=== PATIENT | male | born 1950 | race Caucasian/White ===

== ENCOUNTER → 2016-03-02 | Outpatient (CLI) | payer OTHER ==
[~2016-03-02] MED LIST: DOXA-10 PO
[2016-03-02 17:08] LABS: % FREE PSA 8.9 %; FREE PSA 1.81 ng/ml; PROSTATE SPECIFIC ANTIGEN 20.4 ng/ml (0.000-4.000)
== END | disposition home or self-care (01) ==
LOC: C.LAB 15:11
PROVIDERS: ATTEND Urology
DX: N40.1 Benign prostatic hyperplasia with lower urinary tract symptoms (principal); R97.20 Elevated prostate specific antigen [PSA]; N52.9 Male erectile dysfunction, unspecified; N41.9 Inflammatory disease of prostate, unspecified; N50.819 Testicular pain, unspecified

== ENCOUNTER → 2016-05-12 | Outpatient (CLI) | payer OTHER | END | disposition home or self-care (01) | LOC: C.PATHSPEC 17:41 | PROVIDERS: ATTEND Urology | DX: R97.20 Elevated prostate specific antigen [PSA] (principal); N41.0 Acute prostatitis; N41.1 Chronic prostatitis ==

== ENCOUNTER 2016-08-17 10:48 | Emergency (ER) | payer OTHER ==
[~2016-08-17] VITALS: Ht 175.3 cm; Wt 81.9 kg
[2016-08-17 10:52] VITALS: TEMP 36.6; Ht 175.3 cm; Wt 81.9 kg
[2016-08-17] MEDS ORDERED: ONDANSETRON 8 MG/54 ML D5W IV STA (11:40)
[2016-08-17 12:04] LABS: HEMATOCRIT 47.9 % (42-52); MEAN CELL VOLUME 90.4 fL (80-100); MEAN CORPUSCULAR HEMOGLOBIN 30.8 pg (25-34); WHITE BLOOD COUNT 5.31 K/uL (4.8-10.8)
[2016-08-17 12:13] LABS: BUN/CREATININE RATIO 17.5 (10-20); CALCIUM 9.2 mg/dl (8.5-10.1); POTASSIUM 4.1 mmol/L (3.5-5.1)
--- NOTE | 2016-08-17 12:18 | DIAGNOSTIC IMAGING REPORT ---
ABDOMEN 2VIEW W/PA CHEST RTN CLINICAL HISTORY: ABDOMINAL PAIN/GI pain COMPARISON STUDY: 09/20/2014 FINDINGS: Negative chest. The lungs are clear. Mild nonobstructive ileus. No evidence for an obstructing pattern. Unchanging calcification lower pole left kidney. Prior cholecystectomy. IMPRESSION: 1. Negative chest. 2. Mild nonobstructive ileus. 3. Unchanged calcification lower pole left kidney. Electronically signed by: Anthony Byrd M.D. 08/17/2016 12:17 PM Dictated Date/Time: 08/17/2016 12:16 PM
[2016-08-17 12:30] LABS: MEAN PLATELET VOLUME 10.2 fL (7.4-10.4)
[2016-08-17 12:42] LABS: PLATELET COUNT 167 K/uL (130-400)
[2016-08-17 12:52] LABS: BASO % 0.4 %; BASO ABS # 0.02 K/uL (0-0.2); COMPLETE YES; EOS % 1.5 %; IG% 0.2 %; LYMPH ABS # 1.38 K/uL (1.2-3.4); MONO % 9.2 %; NEUT % 62.7 %
[2016-08-17 12:55] LABS: URINE APPEARANCE CLEAR (CLEAR); URINE BILIRUBIN NEG (NEG); URINE COLOR YELLOW; URINE NITRITE NEG (NEG); URINE PH 5.5 (4.5-7.5); URINE SPECIFIC GRAVITY 1.023 (1.000-1.030); UROBILINOGEN NEG (NEG)
[2016-08-17 13:03] LABS: MANUAL MICROSCOPIC REQUIRED? NO; REVIEW REQ? NO
--- NOTE | 2016-08-17 13:34 | DIAGNOSTIC IMAGING REPORT ---
CT SCAN OF THE ABDOMEN AND PELVIS WITHOUT IV CONTRAST CLINICAL HISTORY: Suprapubic pain. COMPARISON STUDY: Abdominal CT dated 07/26/2015. Abdominal radiographs dated 08/17/2016. TECHNIQUE: CT scan of the abdomen and pelvis is performed from the lung bases to the proximal femora. Images are reviewed in the axial, sagittal, and coronal planes. IV contrast was not administered for this examination as per the referring clinician. Note that the examination was performed in suboptimal fashion without oral and IV contrast. Automated dose control exposure was utilized. CT DOSE: 444.56 mGy.cm FINDINGS: Lung bases: The heart is normal in size and without pericardial effusion. There is no airspace consolidation or pleural effusion. Dependent atelectasis is present the lung bases. Scattered calcified granulomas are noted. There is a tiny hiatal hernia. Small calcified nodes are seen at the gastroesophageal junction. Calcified subcarinal node is partially imaged. Liver: The unenhanced liver is normal in size, contour, and attenuation. There is no intrahepatic biliary ductal dilatation. There is minimal pneumobilia, likely related to previous sphincterotomy. Gas is also seen in the common bile duct. Gallbladder: Surgically absent noting clips in the gallbladder fossa. Spleen: Normal in size and attenuation. Pancreas: The unenhanced pancreas is grossly unremarkable. Adrenal glands: Unremarkable. Kidneys: The unenhanced kidneys demonstrate cortical atrophy and are without hydronephrosis. There is a 6 mm nonobstructing calculus in the lower pole of left kidney. Additional punctate nonobstructing calculi are seen in both kidneys. There is no evidence of contour deforming renal mass lesion. Abdominal vasculature: The abdominal aorta is normal in course and caliber noting mild atherosclerotic calcification. Bowel: The small bowel and colon are normal in course and caliber. There is moderate to advanced colonic diverticulosis without CT evidence of acute diverticulitis. Mild wall thickening of the sigmoid is unchanged and likely related to chronic diverticular disease. The appendix is well-visualized and normal. Peritoneum: There is no intraperitoneal free air or abdominal ascites. There is a small fat-containing umbilical hernia. Lymphadenopathy: None. Pelvic viscera: The prostate gland is enlarged and there is median lobe hypertrophy. The bladder wall appears mildly thickened and trabeculated suggesting chronic outlet obstruction. Surgical clips are seen along the spermatic cord bilaterally. Skeletal structures: There is mild to moderate lumbosacral spondylosis. No lytic or blastic lesions are seen. IMPRESSION: 1. There are no acute infectious or inflammatory findings in the abdomen or pelvis. 2. Bilateral nonobstructing renal calculi. 3. Moderate to advanced colonic diverticulosis without CT evidence of acute diverticulitis. 4. Pneumobilia is likely related to previous sphincterotomy. Clinical correlation will be required. 5. Prostatomegaly with evidence of chronic bladder outlet obstruction. 6. Additional findings as above. Electronically signed by: Harvey Wooten M.D. 08/17/2016 1:33 PM Dictated Date/Time: 08/17/2016 1:25 PM
[2016-08-17 14:39] VITALS: BP 122/78; PULSE 74; O2SAT 98
--- NOTE | 2016-08-17 21:09 | EMERGENCY ROOM VISIT NOTE ---
ED Visit Note First contact with patient: 11:26 Chief Complaint: Abdominal pain. History of Present Illness: Mr. Church is a 66 year-old white male who ambulates into the ED accompanied by his complaining suprapubic abdominal pain. Historically patient reports gallbladder disease and status post cholecystectomy , urinary retention and kidney stones. Patient reports a acute onset of suprapubic abdominal pain that started approximately 4 days ago. This was associated with nausea and 4 episodes of diarrhea. When he woke up on Tuesday he reports his symptoms had resolved without use of any medications but noted that he was only passing a small amount of stool. On Tuesday he had return of discomfort and since that time his pain has been constant but has waxed and waned in intensity. Patient reports he is having a cramping like sensation in the suprapubic area. At rest he rates his discomfort 4/10. When he is ambulating and standing up his pain become severe and he rates this severe discomfort as a 9/10. His pain is nonradiating. He does report when his pain become severe he has the sensation like "someone is pulling on my rectum." He has not identified any other aggravating or alleviating factors related to the pain. He has not taken any medications for pain prior to arrival at the hospital. He reports all day Tuesday and today he has not moved his bowels. Patient denies fevers, chills, sweats, skin eruptions, skin color changes, upper respiratory tract symptoms, shortness of breath, chest pain, nausea, vomiting, rectal bleeding, black/tarry stools, urinary symptoms, hematuria, back /flank pain. Review of Systems: As noted above in history of present illness. All body systems were reviewed and found to be negative as noted above. Past Medical History: As noted above and hypertension, unspecified skin disorder , pneumonia, status post cholecystectomy, unspecified rotator cuff surgery, unspecified hernia surgery and unspecified knee surgery. Current Medications: Doxazosin. Allergies to Medications: Augmentin, IV contrast dye, metoclopramide. Social History: Patient is currently employed; he lives with his and feels safe in his home environment; he denies tobacco use and admits to alcohol use. Physical Examination: Vital Signs: Date Time Temp Pulse Resp B/P (MAP) Pulse Ox O2 Delivery O2 Flow Rate FiO2 08/17/16 14:39 74 18 122/78 98 7/11/17 12:51 69 20 119/74 98 Room Air 08/17/16 10:52 36.6 87 20 127/86 99 Room Air GENERAL: 66-year-old male in mild distress due to pain, nontoxic-appearing, afebrile and hemodynamically stable. NEUROLOGICAL: Awake, alert and oriented to person, place and time. Answering questions appropriately and following commands. Normal gait. Good hand eye coordination. SKIN: Warm, dry and pink. No soft tissue eruptions or trauma noted. HEENT: Atraumatic and normocephalic. PERRLA. Sclera white and conjunctiva pink. Oral cavity moist and pink. Pharynx is nonerythematous or edematous. Speech normal. No lymphadenopathy. Trachea midline. No jugular venous distention. BACK: No tenderness over the bony spine. No CVA tenderness. THORAX: Lungs sounds are clear to auscultation and equal bilaterally with symmetrical chest wall. No wheezing, rales or rhonchi. No crepitus, tenderness , subcutaneous air or deformities noted. HEART: Regular rate and rhythm. No gallops, rubs or murmurs are appreciated. ABDOMEN: Flat and soft with mild tenderness in the suprapubic area. I was not able to palpate the bladder or appreciate any distention. Decreased bowel sounds in all quadrants. No guarding, rigidity or organomegaly. EXTREMITIES: Moves all extremities well on command and with purpose. All distal neurovascular statuses are intact and equal bilaterally. ED Course: Patient is assessed as noted above. Patient's medication list was reviewed. Laboratory Testing: Test 08/17/16 11:00 08/17/16 11:05 Range/Units Urine Color YELLOW Urine Appearance CLEAR CLEAR Urine pH 5.5 4.5-7.5 Urine Specific [place] 1.023 1.000-1.030 Urine Protein NEG NEG Urine Glucose (UA) NEG NEG Urine Ketones NEG NEG Urine Occult Blood NEG NEG Urine Nitrite NEG NEG Urine Bilirubin NEG NEG Urine Urobilinogen NEG NEG Urine Leukocyte Esterase NEG NEG White Blood Count 5.31 4.8-10.8 K/uL Red Blood Count 5.30 4.7-6.1 M/uL Hemoglobin 16.3 14.0-18.0 g/dL Hematocrit 47.9 42-52 % Mean Corpuscular Volume 90.4 80-100 fL Mean Corpuscular Hemoglobin 30.8 25-34 pg Mean Corpuscular Hemoglobin Concent 34.0 32-36 g/dl Platelet Count 167 130-400 K/uL Mean Platelet Volume 10.2 7.4-10.4 fL Neutrophils (%) (Auto) 62.7 % Lymphocytes (%) (Auto) 26.0 % Monocytes (%) (Auto) 9.2 % Eosinophils (%) (Auto) 1.5 % Basophils (%) (Auto) 0.4 % Neutrophils # (Auto) 3.33 1.4-6.5 K/uL Lymphocytes # (Auto) 1.38 1.2-3.4 K/uL Monocytes # (Auto) 0.49 0.11-0.59 K/uL Eosinophils # (Auto) 0.08 0-0.5 K/uL Basophils # (Auto) 0.02 0-0.2 K/uL RDW Standard Deviation 42.6 36.4-46.3 fL RDW Coefficient of Variation 12.9 11.5-14.5 % Immature Granulocyte % (Auto) 0.2 % Immature Granulocyte # (Auto) 0.01 0.00-0.02 K/uL Sodium Level 138 136-145 mmol/L Potassium Level 4.1 3.5-5.1 mmol/L Chloride Level 104 98-107 mmol/L Carbon Dioxide Level 27 21-32 mmol/L Anion Gap 7.0 3-11 mmol/L Blood Urea Nitrogen 18 7-18 mg/dl Creatinine 1.00 0.60-1.40 mg/dl Est Creatinine Clear Calc Drug Dose 72.7 ml/min Estimated GFR () 90.5 Estimated GFR (Non- 78.1 BUN/Creatinine Ratio 17.5 10-20 Random Glucose 102 70-99 mg/dl Calcium Level 9.2 8.5-10.1 mg/dl Total Bilirubin 0.9 0.2-1 mg/dl Direct Bilirubin 0.2 0-0.2 mg/dl Aspartate Amino Transf (AST/SGOT) 22 15-37 U/L Alanine Aminotransferase (ALT/SGPT) 27 12-78 U/L Alkaline Phosphatase 72 45-117 U/L Total Protein 7.3 6.4-8.2 gm/dl Albumin 3.9 3.4-5.0 gm/dl Lipase 145 73-393 U/L Acute Abdominal Series: Was read by myself and the radiologist showing a normal- appearing chest with/infiltrates, effusions or pneumothorax. Normal heart silhouette and a normal-appearing bony structures. Abdominal component shows a mild nonobstructive ileus without evidence of obstructive pattern. No free air. Radiologist also made a left kidney calcification unchanged from previous. Noncontrast Abdominal/Pelvic CT: Was reviewed by myself and read by the radiologist showing no acute infectious or inflammatory findings within the abdomen, bilateral nonobstructive renal calculi, moderate to advanced colonic diverticulosis without evidence of diverticulitis, pneumobilia likely related to previous sphincterotomy, prostatomegaly with evidence of chronic bladder outlet obstruction. Bladder Scan: 160 mL. An IV lock was initiated and patient was offered pain and antinausea medications multiple time and refused. Patient was reassessed multiple times during his stay in the emergency department. Patient's case was reviewed with Dr. Sandoval; we agreed on diagnostic approach, treatment, disposition and plan. Patient was educated about today's findings and instructed on his treatment plan ; he verbalizes understanding and agreement with this plan. Clinical Impression: Mild nonobstructive ileus. Decision-Making: Initially my differential diagnosis I considered bowel obstruction, cystitis, urinary retention, appendicitis, kidney stone and other causes. Disposition: Patient discharged home in stable condition accompanied by his ; prior to departure he was reassessed and subjectively reported that he was pain and symptom-free. Plan: Comfort measures were discussed with the patient including a sliding pain medication scale of ibuprofen, acetaminophen and Malone; he was given appropriate narcotic precautions and his name was checked on the state database and no red flags were noted. Patient was encouraged use a liquid Bligh for the next 48 hours. [facility] and 36-48 hours for recheck; he was encouraged return to the ED if he could not [facility] Patient was encouraged to return to the ED sooner for worsening/uncontrolled pain, worsening decreasing bowel movements, bloody stools, vomiting, fevers or any new/concerning symptoms.
== END 2016-08-17 14:40 | disposition home or self-care (01) ==
LOC: C.EDB 10:49 → C.EDC 14:40
DX: K56.7 Ileus, unspecified (principal); I10 Essential (primary) hypertension; Z87.01 Personal history of pneumonia (recurrent); Z79.899 Other long term (current) drug therapy

== ENCOUNTER → 2016-09-09 | Outpatient (CLI) | payer OTHER ==
[2016-09-09 10:12] LABS: HEMATOCRIT 48.3 % (42-52); MEAN CELL VOLUME 91.3 fL (80-100); MEAN CORPUSCULAR HEMOGLOBIN 30.8 pg (25-34); MEAN CORPUSCULAR HGB CONC 33.7 g/dl (32-36); RED BLOOD COUNT 5.29 M/uL (4.7-6.1); WHITE BLOOD COUNT 4.82 K/uL (4.8-10.8)
== END | disposition home or self-care (01) ==
LOC: C.LAB 07:20
PROVIDERS: ATTEND Nurse Practitioner Family
DX: R53.83 Other fatigue (principal)

== ENCOUNTER → 2016-12-01 | Outpatient (CLI) | payer OTHER ==
[2016-12-01 10:00] LABS: BLOOD UREA NITROGEN 13 mg/dl (7-18); BUN/CREATININE RATIO 14.7 (10-20); CREATININE 0.89 mg/dl (0.60-1.40)
== END | disposition home or self-care (01) ==
LOC: C.LAB 07:40
PROVIDERS: ATTEND Urology
DX: N41.9 Inflammatory disease of prostate, unspecified (principal)

== ENCOUNTER 2017-02-16 08:38 | Emergency (ER) | payer OTHER ==
[~2017-02-16] VITALS: Ht 175.3 cm; Wt 82.0 kg
[2017-02-16 08:40] VITALS: TEMP 36.6; Ht 175.3 cm; Wt 82.0 kg
[2017-02-16] MEDS ORDERED: SODIUM CHLORIDE 0.9% 1000ML 1,000 ML IV STA (09:28)
[2017-02-16] MEDS ORDERED: MoRPHine SULFATE 4 MG/ML 1 ML CARP\\VIAL IV STA ×3 (09:28→12:11)
[2017-02-16] MEDS ORDERED: ONDANSETRON INJ 2 MG/ML 2 ML VIAL IV STA (09:28)
--- NOTE | 2017-02-16 09:29 | EMERGENCY ROOM VISIT NOTE ---
ED Visit Note First contact with patient: 08:45 I have seen and examined this patient with Ismael Pagan and generally agree with the treatment plan as discussed.
[2017-02-16 10:03] LABS: ALBUMIN 3.7 gm/dl (3.4-5.0); CALCIUM 9.1 mg/dl (8.5-10.1); CREATININE 0.86 mg/dl (0.60-1.40); POTASSIUM 4.4 mmol/L (3.5-5.1)
[2017-02-16 10:11] LABS: MEAN CORPUSCULAR HGB CONC 34.3 g/dl (32-36)
[2017-02-16] MEDS ORDERED: MELA3TAB12 PO (10:11)
[2017-02-16] MEDS ORDERED: DOCU100C31 PO (10:11)
[2017-02-16 10:33] LABS: HEMATOCRIT 47.5 % (42-52); HEMOGLOBIN 16.3 g/dL (14.0-18.0); MEAN CORPUSCULAR HEMOGLOBIN 31.2 pg (25-34); WHITE BLOOD COUNT 5.62 K/uL (4.8-10.8)
[2017-02-16 10:34] LABS: BASO % 0.2 %; BASO ABS # 0.01 K/uL (0-0.2); EOS % 1.2 %; EOS ABS # 0.07 K/uL (0-0.5); IG# 0.01 K/uL (0.00-0.02); LYMPH % 12.6 %; LYMPH ABS # 0.71 K/uL (1.2-3.4); MONO % 9.1 %; MONO ABS # 0.51 K/uL (0.11-0.59); NEUT % 76.7 %; NEUT ABS # 4.31 K/uL (1.4-6.5)
--- NOTE | 2017-02-16 10:52 | DIAGNOSTIC IMAGING REPORT ---
PA CHEST WITH ABDOMINAL SERIES CLINICAL HISTORY: Lower abdominal pain. Constipation. FINDINGS: A PA chest radiograph is compared to study dated 08/17/2016. The cardiomediastinal silhouette is unremarkable. There are low lung volumes and bibasilar atelectasis. The lungs and pleural spaces are otherwise clear. No pneumothorax is seen. The bony thorax is grossly intact. Supine and erect abdominal radiographs are compared to radiographs and CT dated 08/17/2016. Cholecystectomy clips are identified in the right upper quadrant. There is mild gaseous distention of the small bowel. Air-fluid levels are noted in the small bowel and colon. There is no clear radiographic evidence of bowel obstruction. No intraperitoneal free air is seen. There is a nonobstructing left renal calculus. The lumbosacral spine and bony pelvis appear intact. IMPRESSION: 1. No active disease in the chest. 2. There is mild gaseous distention of the small bowel. Air-fluid levels are noted in the small bowel and colon. The appearance suggests a nonspecific enterocolitis. Bowel obstruction is considered less likely. Clinical correlation will be required. 3. No intraperitoneal free air is seen. 4. Nonobstructing left renal calculus. Electronically signed by: Harvey Wooten M.D. 02/16/2017 10:50 AM Dictated Date/Time: 02/16/2017 10:48 AM
[2017-02-16] MEDS ORDERED: DICY10CA55 PO (12:13)
--- NOTE | 2017-02-16 12:13 | EMERGENCY ROOM VISIT NOTE ---
History First contact with patient: 08:45 Chief Complaint: ABDOMINAL PAIN Stated Complaint: LOWER ABDOMINAL PAIN Nursing Triage Summary: c/o lower abd pain since yesterday with diarrhea on tuesday and cold like sx History of Present Illness Patient is a 66-year-old white male who presents the emergency department for evaluation of lower abdominal pain that started yesterday afternoon. Patient reports that he has a history of stomach problems, he has had ileus in the past and has been admitted for bowel obstructions. He is status post cholecystectomy. He notes that about 3-4 days ago, he had an episode of increased diarrhea, which was followed by constipation 2 days. His lower abdominal discomfort started last evening. He states that this is similar to his prior presentations. He also does note that he developed some minor upper respiratory symptoms with the onset of the diarrhea including nasal congestion and a cough. He reports low midline abdominal discomfort. He describes it as a burning sensation and states that it comes in waves. It it is a 56/10 presently, but shoots up to a 10/10. He does feel nauseous with the pain. His last bowel movement was last evening. He is on stool softeners chronically, and does take magnesium citrate to help facilitate bowel movements. He does admit to dysuria, but has a history of BPH. He denies any fever or chills. He has not vomited. He states that this pain is similar to his prior episodes of abdominal pain. His last bowel movement was last night, and was hard and dark. Review of Systems Review of systems as per HPI. All other systems reviewed were negative. 10 systems reviewed. Past Medical/Surgical History Medical Problems: (1) Abdominal pain (2) Benign Prostatic Hyperplasia With Lower Urinary Tract Symp (3) Chest pain (4) Diverticulitis (5) Elevated liver enzymes (6) Febrile illness (7) Hyperbilirubinemia (8) Hypertension (9) Ileus (10) Kidney disease (11) Kidney stones (12) Lower abdominal pain (13) Night sweats (14) Night sweats (15) Pneumonia (16) skin problems (17) Small bowel obstruction (18) Small bowel obstruction (19) Urinary retention Surgical Problems: (1) S/P cholecystectomy Electronic medical records are reviewed and summarized as above/below. See Problem List. Family History Cancer Hypertension Kidney disease Kidney stones Lung disease Social History Smoking Status: Former Smoker Alcohol Use: occasionally Marital Status: Housing Status: lives with significant other Occupation Status: employed Current/Historical Medications Scheduled Docusate Sodium (Docusate Sodium), 100 MG PO BID Doxazosin Mesylate (Doxazosin Mesylate), 8 MG PO HS Scheduled PRN Dicyclomine Hcl (Bentyl), 10 MG PO TID PRN for Pain Melatonin-Pyridoxine (Melatonin), 1 TAB PO HS PRN for Sleep Physical Exam Vital Signs Date Time Temp Pulse Resp B/P (MAP) Pulse Ox O2 Delivery O2 Flow Rate FiO2 02/16/17 12:30 70 18 132/77 96 Room Air 02/16/17 11:01 67 16 135/78 94 02/16/17 08:40 36.6 83 16 142/92 95 Physical Exam CONSTITUTIONAL: Patient is a well-appearing 66-year-old white male who is awake and alert and mildly uncomfortable, laying on the gurney with his female friend at the bedside. EYES: Pupils equal, round, reactive to light and accommodation. EOMs intact without nystagmus. Sclera are anicteric. ENT: Tympanic membranes intact, with normal landmarks. External canals are clear. Oral and nasopharynx are clear. Mucous membranes are moist, no lesions , tongue and gums appear normal. NECK: No bruits auscultated. Supple without lymphadenopathy. No thyromegaly. No meningeal signs. Full active range of motion without discomfort. CARDIOVASCULAR: Regular rate and rhythm, with normal S1 and S2, no murmur or gallop or rub is heard. No carotid bruits auscultated. No JVD. Peripheral pulses easily palpable. RESPIRATORY: Breath sounds equal and clear to auscultation without wheezes, rales, or rhonchi heard. Full and equal chest expansion without accessory muscle use or retractions. ABDOMEN: Bowel sounds are present. Well-healed surgical scars are noted. Abdomen is soft, slightly distended, tender to palpation in the lower abdomen in the midline. There is no guarding, rebound or rigidity. INTEGUMENTARY: No lesions or rash, normal skin turgor. LYMPH: No lymphadenopathy. Medical Decision & Procedures ER Provider Diagnostic Interpretation: PA CHEST WITH ABDOMINAL SERIES CLINICAL HISTORY: Lower abdominal pain. Constipation. FINDINGS: A PA chest radiograph is compared to study dated 08/17/2016. The cardiomediastinal silhouette is unremarkable. There are low lung volumes and bibasilar atelectasis. The lungs and pleural spaces are otherwise clear. No pneumothorax is seen. The bony thorax is grossly intact. Supine and erect abdominal radiographs are compared to radiographs and CT dated 08/17/2016. Cholecystectomy clips are identified in the right upper quadrant. There is mild gaseous distention of the small bowel. Air-fluid levels are noted in the small bowel and colon. There is no clear radiographic evidence of bowel obstruction. No intraperitoneal free air is seen. There is a nonobstructing left renal calculus. The lumbosacral spine and bony pelvis appear intact. IMPRESSION: 1. No active disease in the chest. 2. There is mild gaseous distention of the small bowel. Air-fluid levels are noted in the small bowel and colon. The appearance suggests a nonspecific enterocolitis. Bowel obstruction is considered less likely. Clinical correlation will be required. 3. No intraperitoneal free air is seen. 4. Nonobstructing left renal calculus. Laboratory Results 02/16/17 09:30 Red Blood Count 5.22, Mean Corpuscular Volume 91.0, Mean Corpuscular Hemoglobin 31.2, Mean Corpuscular Hemoglobin Concent 34.3, Mean Platelet Volume , Neutrophils (%) (Auto) 76.7, Lymphocytes (%) (Auto) 12.6, Monocytes (%) (Auto) 9.1, Eosinophils (%) (Auto) 1.2, Basophils (%) (Auto) 0.2, Neutrophils # (Auto) 4.31, Lymphocytes # (Auto) 0.71, Monocytes # (Auto) 0.51, Eosinophils # (Auto) 0.07, Basophils # (Auto) 0.01 02/16/17 09:30 Test 02/16/17 09:30 02/16/17 09:50 White Blood Count 5.62 K/uL (4.8-10.8) Red Blood Count 5.22 M/uL (4.7-6.1) Hemoglobin 16.3 g/dL (14.0-18.0) Hematocrit 47.5 % (42-52) Mean Corpuscular Volume 91.0 fL (80-100) Mean Corpuscular Hemoglobin 31.2 pg (25-34) Mean Corpuscular Hemoglobin Concent 34.3 g/dl (32-36) Platelet Count K/uL (130-400) Mean Platelet Volume fL (7.4-10.4) Neutrophils (%) (Auto) 76.7 % Lymphocytes (%) (Auto) 12.6 % Monocytes (%) (Auto) 9.1 % Eosinophils (%) (Auto) 1.2 % Basophils (%) (Auto) 0.2 % Neutrophils # (Auto) 4.31 K/uL (1.4-6.5) Lymphocytes # (Auto) 0.71 K/uL (1.2-3.4) Monocytes # (Auto) 0.51 K/uL (0.11-0.59) Eosinophils # (Auto) 0.07 K/uL (0-0.5) Basophils # (Auto) 0.01 K/uL (0-0.2) RDW Standard Deviation 43.0 fL (36.4-46.3) RDW Coefficient of Variation 13.0 % (11.5-14.5) Immature Granulocyte % (Auto) 0.2 % Immature Granulocyte # (Auto) 0.01 K/uL (0.00-0.02) Anion Gap 4.0 mmol/L (3-11) Est Creatinine Clear Calc Drug Dose 84.5 ml/min Estimated GFR () 104.7 Estimated GFR (Non- 90.4 BUN/Creatinine Ratio 15.9 (10-20) Calcium Level 9.1 mg/dl (8.5-10.1) Total Bilirubin 0.7 mg/dl (0.2-1) Aspartate Amino Transf (AST/SGOT) 19 U/L (15-37) Alanine Aminotransferase (ALT/SGPT) 30 U/L (12-78) Alkaline Phosphatase 74 U/L (45-117) Total Protein 7.0 gm/dl (6.4-8.2) Albumin 3.7 gm/dl (3.4-5.0) Globulin 3.3 gm/dl (2.5-4.0) Albumin/Globulin Ratio 1.1 (0.9-2) Lipase 119 U/L (73-393) Urine Color YELLOW Urine Appearance CLEAR (CLEAR) Urine pH 8.0 (4.5-7.5) Urine Specific [place] 1.018 (1.000-1.030) Urine Protein NEG (NEG) Urine Glucose (UA) NEG (NEG) Urine Ketones NEG (NEG) Urine Occult Blood NEG (NEG) Urine Nitrite NEG (NEG) Urine Bilirubin NEG (NEG) Urine Urobilinogen NEG (NEG) Urine Leukocyte Esterase NEG (NEG) Medications Administered Medications (Trade) Dose Ordered Sig/Luis Alberto Route Start Time Stop Time Status Last Admin Dose Admin Sodium Chloride 1,000 ml @ 999 mls/hr Q1H1M STAT IV 02/16/17 09:28 02/16/17 10:28 DC 02/16/17 10:00 999 MLS/HR Ondansetron HCl (Zofran Inj) 4 mg NOW STAT IV 02/16/17 09:28 02/16/17 09:30 DC 02/16/17 09:43 4 MG Morphine Sulfate (MoRPHine SULFATE INJ) 4 mg NOW STAT IV 02/16/17 09:28 02/16/17 09:30 DC 02/16/17 09:43 4 MG Morphine Sulfate (MoRPHine SULFATE INJ) 4 mg NOW STAT IV 02/16/17 11:03 02/16/17 11:04 DC 02/16/17 11:10 4 MG Morphine Sulfate (MoRPHine SULFATE INJ) 4 mg NOW STAT IV 02/16/17 12:11 02/16/17 12:12 DC 02/16/17 12:27 4 MG ED Course The patient was seen and assessed as above. His old records were reviewed. IV lock was initiated and he was hydrated with normal saline solution. Laboratory studies were collected, CBC with differential, CMP, lipase and urinalysis were performed. He was given Zofran 4 mg IV for nausea and was given 4 mg IV 3 for his lower abdominal discomfort. Given his history and symptoms, acute abdominal series was obtained. Patient's laboratory studies noted a normal white count, no left shift or bandemia. H&H is normal. Electrolytes are within normal limits. Renal functions are not elevated. LFTs are unremarkable and lipase is normal. Urinalysis is completely clear. Acute abdominal series notes mild gaseous distention of the small bowel. Air-fluid levels are noted in the small bowel and colon, appearance is suggestive of a nonspecific enterocolitis. Bowel obstruction was considered less likely. There is no free air. Nonobstructing nephrolithiasis was noted. The patient was reassessed frequently. As noted above, he did require several doses of morphine for pain. The patient's old records are reviewed, and he has multiple visits with hospitalizations similar to this in the past. He does have a history of diverticulosis, and diverticulitis was considered. Given his benign abdominal exam however, and findings consistent with enterocolitis on x- ray, after reviewing with the patient and his and with attending physician , it was felt that CT scan was not indicated at this time. Certainly if his symptoms persist CT would be considered. Patient reports an underlying history of constipation alternating with diarrhea. He does have some intermittent bloating and abdominal discomfort, and I question whether he may have some underlying element of irritable bowel syndrome. He has not seen GI since his gallbladder issues many years ago, and I discussed with him that he may benefit from GI evaluation. At this point, it was recommended that the patient put himself in a soft/clear diet and remain hydrated. Narcotics were avoided due to their constipating side effects, but he was given a prescription for Bentyl to use as needed for cramping. He is advised to follow-up with his primary care provider for recheck, but welcomed to return to the emergency department for persistent or worsening symptoms. He was discharged home with a family member driving. He rated his pain a 6/10 at discharge. Differential diagnoses entertained included UTI, pyelonephritis, urinary retention, cystitis, diverticulitis, bowel obstruction, mass or malignancy, among others. Medical Decision See ED Course. Medication Reconcilliation Current Medication List: was personally reviewed by me Blood Pressure Screening Blood pressure disposition: Elevated BP felt to be situational Impression Primary Impression: Lower abdominal pain Additional Impression: Enterocolitis Departure Information Prescriptions Dicyclomine Hcl (BENTYL) 10 Mg Cap 10 MG PO TID Y for Pain, #30 CAP Prov: Summer Pagan PA 02/16/17 Referrals No Doctor, Assigned (PCP) Patient Instructions [facility] Additional Instructions Bentyl 10 mg : Take 1 tablet 3 times daily as needed for abdominal pain/ cramping. Acetaminophen(Tylenol) may be used for fever or pain. Use 1000mg every eight hours as needed. Avoid using more than 3000mg in a 24 hour period. This is available over the counter. Rest and drink plenty of fluids as tolerated. Slow sips of water or sports drinks are recommended instead of large amounts all at once. Continue current medications. Once your stomach is settled start with a clear liquid diet (jello, soup broth, etc.) and then advance as tolerated. You should avoid full, heavy meals for about 24 hrs from the time your symptoms resolved. Return to the ER immediately for worsening or persistent abdominal pain, vomiting, fevers, chest pains, difficulty breathing, black or bloody stools, worsening of your condition, or as needed. Follow up with your primary physician in 1-2 days for a recheck of your current condition. Problem Qualifiers
[2017-02-16 12:30] VITALS: BP 132/77; PULSE 70; O2SAT 96
[2017-02-17] MEDS ORDERED: DICY10CA55 PO (18:30)
[2017-02-17] MEDS ORDERED: TAMS0.4C38 PO (20:17)
[2017-02-17] MEDS ORDERED: ONDA4TAB10 SL (20:17)
== END 2017-02-16 12:36 | disposition home or self-care (01) ==
LOC: C.EDB 08:41
DX: K52.9 Noninfective gastroenteritis and colitis, unspecified (principal); K59.00 Constipation, unspecified; K56.699 Other intestinal obstruction unspecified as to partial versus complete obstruction; K57.92 Diverticulitis of intestine, part unspecified, without perforation or abscess without bleeding; K63.89 Other specified diseases of intestine; Z90.49 Acquired absence of other specified parts of digestive tract; I10 Essential (primary) hypertension; Z87.891 Personal history of nicotine dependence; Z82.49 Family history of ischemic heart disease and other diseases of the circulatory system; Z84.1 Family history of disorders of kidney and ureter; Z83.6 Family history of other diseases of the respiratory system

== ENCOUNTER 2017-02-17 17:36 | Emergency (ER) | payer OTHER ==
[~2017-02-17] VITALS: Ht 175.3 cm; Wt 84.1 kg
[~2017-02-17 17:36] MED LIST changes: +DICY10CA55 PO; +DOCU100C31 PO; +MELA3TAB12 PO
[2017-02-17 17:53] VITALS: TEMP 36.8; Ht 175.3 cm; Wt 84.1 kg
[2017-02-17] MEDS ORDERED: KETOROLAC TROMETHAMINE 30 MG/ML VIAL IV STA (18:24)
[2017-02-17] MEDS ORDERED: SODIUM CHLORIDE 0.9% 1000ML 1,000 ML IV STA (18:24)
[2017-02-17] MEDS ORDERED: ONDANSETRON INJ 2 MG/ML 2 ML VIAL IV STA (18:24)
[2017-02-17] MEDS ORDERED: DICY10CA55 PO (18:30)
[2017-02-17 18:53] LABS: ALBUMIN 3.6 gm/dl (3.4-5.0); CALCIUM 8.6 mg/dl (8.5-10.1); CREATININE 1.46 mg/dl (0.60-1.40); POTASSIUM 4.3 mmol/L (3.5-5.1)
[2017-02-17 18:57] LABS: TOTAL PROTEIN 6.9 gm/dl (6.4-8.2)
--- NOTE | 2017-02-17 18:59 | EMERGENCY ROOM VISIT NOTE ---
History Report prepared by Mignon: Jericho Cisse Under the Supervision of: Dr. Ashok Burnett M.D. First contact with patient: 18:12 Chief Complaint: GI ASSESSMENT Stated Complaint: PAIN IN LEFT SIDE, BURNING/BLOATING STOMACH Nursing Triage Summary: Patient was seen in the ER yesterday, pain worse in left flank and also c/o bloating and nausea History of Present Illness The patient is a 66 year old male who presents to the Emergency Room with complaints of intermittent back pain for 15 hours [employer]. He woke up in the middle of the night with severe left back pain. He notes a cold, nausea, bloating, and upper abdominal pain. He notes left abdominal pain with a burning sensation. He notes the pain worsens with walking. He currently rates his pain 7/10 in severity. He states this is the same pain he had with kidney stones in the past. He notes that he ate breakfast with no issues. He notes that he took Tylenol for the back pain. He was recently seen in the ED yesterday for low abdominal symptoms. He notes the pain from his ED visit has resolved itself. He was diagnosed with viral enteritis. He notes that he has had several CT scans in the past for abdominal issues. He was given anti-spasmodic medication, which he notes provided relief. He denies any diarrhea. Source of History: patient Onset: 15 hours AD O[employer]ATIONS [employer] Position: back Symptom Intensity: 7/10 Timing: intermittent Modifying Factors (Worsening): other (walking) Associated Symptoms: + nausea, + abdominal pain (upper ), No diarrhea Note: She notes back pain, bloating, and a cold. Review of Systems See HPI for pertinent positives and negatives. A total of ten systems were reviewed and were otherwise negative. Past Medical & Surgical Medical Problems: (1) Abdominal pain (2) Benign Prostatic Hyperplasia With Lower Urinary Tract Symp (3) Chest pain (4) Diverticulitis (5) Elevated liver enzymes (6) Febrile illness (7) Hyperbilirubinemia (8) Hypertension (9) Ileus (10) Kidney disease (11) Kidney stones (12) Lower abdominal pain (13) Night sweats (14) Night sweats (15) Pneumonia (16) skin problems (17) Small bowel obstruction (18) Small bowel obstruction (19) Urinary retention Surgical Problems: (1) S/P cholecystectomy Family History Cancer Hypertension Kidney disease Kidney stones Lung disease Social History Smoking Status: Never Smoker Smokeless Tobacco Use: No Alcohol Use: occasionally Marital Status: Housing Status: lives with significant other Occupation Status: employed Current/Historical Medications Scheduled Docusate Sodium (Docusate Sodium), 100 MG PO BID Doxazosin Mesylate (Doxazosin Mesylate), 8 MG PO HS Ondasetron Odt (Zofran Odt), 4 MG SL Q6H Tamsulosin Hcl (Flomax), 0.4 MG PO DAILY Scheduled PRN Dicyclomine Hcl (Bentyl), 10 MG PO TID PRN for ABD PAIN Melatonin-Pyridoxine (Melatonin), 1 TAB PO HS PRN for Sleep Allergies Coded Allergies: Metoclopramide (Verified Allergy, Severe, GI SYMPTOMS, HALLUCINATIONS, 12/25) DEVEELOPED HALLUCIANTIONS Iodine (Verified Allergy, Unknown, UNKNOWN, 02/17/17) Amoxicillin (Verified Adverse Reaction, Intermediate, GI SYMPTOMS,PROB CHOLESTASIS, 02/17/17) probable cholestasis Clavulanic Acid (Verified Adverse Reaction, Intermediate, GI SYMPTOMS, PROB CHOLESTASIS, 02/17/17) probable cholestasis Physical Exam Vital Signs Date Time Temp Pulse Resp B/P (MAP) Pulse Ox O2 Delivery O2 Flow Rate FiO2 02/17/17 20:20 68 18 128/82 96 Room Air 02/17/17 19:09 63 18 116/71 96 Room Air 02/17/17 17:53 36.8 75 16 126/81 93 Room Air Physical Exam GENERAL: Awake, alert, uncomfortable-appearing, in no distress HENT: Normocephalic, atraumatic. Oropharynx dry mucus membranes. EYES: Normal conjunctiva. Sclera non-icteric. NECK: Supple. No nuchal rigidity. FROM. No JVD. RESPIRATORY: Clear to auscultation. CARDIAC: Regular rate, normal rhythm. Extremities warm and well perfused. Pulses equal. ABDOMEN: Soft, non-distended. Mild tenderness to left CVA and periumbilical region. No rebound or guarding. No masses. RECTAL: Deferred. MUSCULOSKELETAL: Chest examination reveals no tenderness. The back is symmetrical on inspection without obvious abnormality. There is no CVA tenderness to palpation. No joint edema. LOWER EXTREMITIES: Calves are equal size bilaterally and non-tender. No edema. No discoloration. NEURO: Normal sensorium. No sensory or motor deficits noted. SKIN: No rash or jaundice noted. Medical Decision & Procedures ER Provider Diagnostic Interpretation: Radiology results as stated below per my review and radiologist interpretation: ABD/PELVIS IV CONTRAST ONLY CT DOSE: 487.42 mGy.cm HISTORY: Pain left flank pain TECHNIQUE: Multiaxial CT images of the abdomen and pelvis were performed following the use of intravenous contrast. A dose lowering technique was utilized adhering to the principles of ALARA. COMPARISON STUDY: 08/17/2016 FINDINGS: Mild bibasilar atelectatic and/or infiltrative change. Prior cholecystectomy. Liver spleen and pancreas are unremarkable. Kidneys enhance uniformly. There is increased prominence of the left renal pelvis and left renal collecting system. There is a 5 mm obstructing calculus mid left ureter. There is bowel pattern overall is nonobstructive. There is increased fecal load within the sigmoid. There are components of chronic sigmoid diverticulosis. There is no evidence for acute sigmoid diverticulitis. There is trace amount of free cul-de-sac fluid. Bladder is midline. Prostate is enlarged. IMPRESSION: 1. Obstructing calculus mid left ureter measuring 5 mm.. 2. Mild left hydroureteronephrosis. 3. Increased fecal load within the sigmoid colon consistent with fecal stasis. Mild chronic colonic diverticulosis. 4. Bibasilar atelectatic and/or infiltrative changes considered minimal. The above report was generated using voice recognition software. It may contain grammatical, syntax or spelling errors. Electronically signed by: Anthony Byrd M.D. 02/17/2017 7:52 PM Dictated Date/Time: 02/17/2017 7:48 PM Laboratory Results 02/17/17 18:20 Red Blood Count 5.04, Mean Corpuscular Volume 91.3, Mean Corpuscular Hemoglobin 31.0, Mean Corpuscular Hemoglobin Concent 33.9, Mean Platelet Volume 10.3, Neutrophils (%) (Auto) 65.0, Lymphocytes (%) (Auto) 19.7, Monocytes (%) (Auto) 11.0, Eosinophils (%) (Auto) 3.7, Basophils (%) (Auto) 0.4, Neutrophils # (Auto ) 3.38, Lymphocytes # (Auto) 1.02, Monocytes # (Auto) 0.57, Eosinophils # (Auto ) 0.19, Basophils # (Auto) 0.02 02/17/17 18:20 Test 02/17/17 18:20 02/17/17 18:40 02/17/17 18:43 White Blood Count 5.19 K/uL (4.8-10.8) Red Blood Count 5.04 M/uL (4.7-6.1) Hemoglobin 15.6 g/dL (14.0-18.0) Hematocrit 46.0 % (42-52) Mean Corpuscular Volume 91.3 fL (80-100) Mean Corpuscular Hemoglobin 31.0 pg (25-34) Mean Corpuscular Hemoglobin Concent 33.9 g/dl (32-36) Platelet Count 128 K/uL (130-400) Mean Platelet Volume 10.3 fL (7.4-10.4) Neutrophils (%) (Auto) 65.0 % Lymphocytes (%) (Auto) 19.7 % Monocytes (%) (Auto) 11.0 % Eosinophils (%) (Auto) 3.7 % Basophils (%) (Auto) 0.4 % Neutrophils # (Auto) 3.38 K/uL (1.4-6.5) Lymphocytes # (Auto) 1.02 K/uL (1.2-3.4) Monocytes # (Auto) 0.57 K/uL (0.11-0.59) Eosinophils # (Auto) 0.19 K/uL (0-0.5) Basophils # (Auto) 0.02 K/uL (0-0.2) RDW Standard Deviation 43.3 fL (36.4-46.3) RDW Coefficient of Variation 13.1 % (11.5-14.5) Immature Granulocyte % (Auto) 0.2 % Immature Granulocyte # (Auto) 0.01 K/uL (0.00-0.02) Red Blood Cell Morphology Unremarkable Anion Gap 7.0 mmol/L (3-11) Est Creatinine Clear Calc Drug Dose 49.8 ml/min Estimated GFR () 57.3 Estimated GFR (Non- 49.4 BUN/Creatinine Ratio 9.4 (10-20) Calcium Level 8.6 mg/dl (8.5-10.1) Total Bilirubin 0.6 mg/dl (0.2-1) Direct Bilirubin 0.1 mg/dl (0-0.2) Aspartate Amino Transf (AST/SGOT) 21 U/L (15-37) Alanine Aminotransferase (ALT/SGPT) 25 U/L (12-78) Alkaline Phosphatase 77 U/L (45-117) Total Protein 6.9 gm/dl (6.4-8.2) Albumin 3.6 gm/dl (3.4-5.0) Lipase 165 U/L (73-393) Urine Color YELLOW Urine Appearance CLEAR (CLEAR) Urine pH 5.5 (4.5-7.5) Urine Specific [place] 1.010 (1.000-1.030) Urine Protein NEG (NEG) Urine Glucose (UA) NEG (NEG) Urine Ketones NEG (NEG) Urine Occult Blood TRACE (NEG) Urine Nitrite NEG (NEG) Urine Bilirubin NEG (NEG) Urine Urobilinogen NEG (NEG) Urine Leukocyte Esterase NEG (NEG) Urine WBC (Auto) 0 /hpf (0-5) Urine RBC (Auto) 0-4 /hpf (0-4) Urine Hyaline Casts (Auto) 0 /lpf (0-5) Urine Epithelial Cells (Auto) 0-5 /lpf (0-5) Urine Bacteria (Auto) NEG (NEG) Lactic Acid Level 1.1 mmol/L (0.4-2.0) Laboratory results reviewed by me Medications Administered Medications (Trade) Dose Ordered Sig/Luis Alberto Route Start Time Stop Time Status Last Admin Dose Admin Sodium Chloride 1,000 ml @ 999 mls/hr Q1H1M STAT IV 02/17/17 18:24 02/17/17 19:24 DC 02/17/17 18:42 999 MLS/HR Ondansetron HCl (Zofran Inj) 4 mg NOW STAT IV 02/17/17 18:24 02/17/17 18:29 DC 02/17/17 18:41 4 MG Ketorolac Tromethamine (Toradol Inj) 15 mg NOW STAT IV 02/17/17 18:24 02/17/17 18:29 DC 02/17/17 18:44 15 MG Sodium Chloride ([place] Nasal [place]) 2 sprays NOW ONCE NA 02/17/17 19:15 02/17/17 19:16 DC 02/17/17 19:30 2 SPRAYS Methylprednisolone Sodium Succinate (Solu-Medrol IV) 125 mg NOW STAT IV 02/17/17 19:22 1/11/18 19:23 DC 02/17/17 19:29 125 MG Diphenhydramine HCl (Benadryl Inj) 25 mg NOW STAT IV 02/17/17 19:22 02/17/17 19:23 DC 02/17/17 19:29 25 MG Tamsulosin HCl (Flomax Cap) 0.4 mg NOW ONCE PO 02/17/17 20:15 02/17/17 20:16 DC 02/17/17 20:18 0.4 MG Oxycodone HCl (Roxicodone Immediate Rel 5MG Home Pack) 1 homepack UD ONCE PO 02/17/17 20:30 02/17/17 20:31 DC 02/17/17 20:35 1 HOMEPACK ED Course 1817: The patient was evaluated in room C9. A complete history and physical exam was performed. 2019: I reassessed the patient at this time. He is feeling better and resting comfortably. I discussed the results and treatment plan with the patient. I answered all pertaining questions that he had. He expressed understanding and verbalized agreement. The patient will be discharged home. Medical Decision I reviewed the patient's past medical history, medications, and the nursing notes as described above. The patient's history was concerning for abdominal pain. Differential diagnosis: Etiologies such as appendicitis, diverticulitis, PUD, biliary pathology, UTI, pancreatitis, obstruction, mesenteric ischemia, aortic pathology, infections, inflammatory bowel disease, renal colic, as well as others were entertained. The patient is a 66-year-old gentleman with a past medical history of renal stones presents emergency Department with left flank pain in the setting of being seen yesterday in ED for more lower abdominal pain per history of present illness. On arrival the patient is uncomfortable but in no acute distress, afebrile stable vital signs. Labs with WBC and lactate within normal limits. Cr 1.6 up from wnl yesterday. Likely 2/2 mild dehydration given patient's clinically dry status. UA negative for infection. CT demonstrates a 5 mm left ureteral stone associated hydronephrosis. Patient reassessed and symptoms improved after IV fluids and toradol. Plan for Flomax, analgesia and urology follow-up. Patint has followed with Dr. Salvador in the past. Findings and plan for follow-up reviewed with patient. Patient agreeable and d/c'd per discharge instructions. Medication Reconcilliation Current Medication List: was personally reviewed by me Blood Pressure Screening Patient's blood pressure: Normal blood pressure Impression Primary Impression: Ureteral stone Additional Impression: Hydronephrosis due to obstruction of ureter Scribe Attestation The scribe's documentation has been prepared under my direction and personally reviewed by me in its entirety. I confirm that the note above accurately reflects all work, treatment, procedures, and medical decision making performed by me. Departure Information Dispostion Home / Self-Care Prescriptions Tamsulosin Hcl (FLOMAX) 0.4 Mg Cap 0.4 MG PO DAILY, #10 CAP Prov: Ashok Burnett M.D. 02/17/17 Ondasetron Odt (ZOFRAN ODT) 4 Mg Tab 4 MG SL Q6H for Nausea, #6 TAB Prov: Ashok Burnett M.D. 02/17/17 Referrals No Doctor, Assigned (PCP) Momo Salvador MD, Urology Forms HOME CARE DOCUMENTATION FORM, IMPORTANT VISIT INFORMATION Patient Instructions Kidney Stones, My [facility] Additional Instructions Please follow up with your urologist, Dr. Salvador, in the next 1-3 days for re- evaluation and repeat kidney tests. You were found to have a 5mm obstructing kidney stone. Otherwise, your exam, lab results, and CT scan did not show signs of an emergent condition at this time. Flomax as directed. Acetaminophen for pain as needed. Oxycodone for breakthrough pain as needed. Zofran as needed for nausea. Ensure hydration. Return to the emergency department for worsening symptoms as described in the accompanying instructions. Problem Qualifiers
[2017-02-17] MEDS ORDERED: SODIUM CHLORIDE 0.65% NA SOLN 45 ML (OCEAN) ONE (19:15)
[2017-02-17] MEDS ORDERED: METHYLPREDNISOLONE 125 MG VIAL IV STA (19:22)
[2017-02-17] MEDS ORDERED: DiphenhydrAMINE HCL 50 MG/ML VIAL IV STA (19:22)
[2017-02-17 19:32] LABS: HEMOGLOBIN 15.6 g/dL (14.0-18.0); MEAN CELL VOLUME 91.3 fL (80-100); MEAN CORPUSCULAR HGB CONC 33.9 g/dl (32-36); MEAN PLATELET VOLUME 10.3 fL (7.4-10.4); RED CELL DISTRIBUTION WIDTH CV 13.1 % (11.5-14.5); RED CELL DISTRIBUTION WIDTH SD 43.3 fL (36.4-46.3); WHITE BLOOD COUNT 5.19 K/uL (4.8-10.8)
[2017-02-17 19:33] LABS: BASO % 0.4 %; BASO ABS # 0.02 K/uL (0-0.2); EOS % 3.7 %; EOS ABS # 0.19 K/uL (0-0.5); IG# 0.01 K/uL (0.00-0.02); LYMPH % 19.7 %; LYMPH ABS # 1.02 K/uL (1.2-3.4); MONO ABS # 0.57 K/uL (0.11-0.59); NEUT ABS # 3.38 K/uL (1.4-6.5)
[2017-02-17 19:41] LABS: PLATELET COUNT 128 K/uL (130-400)
[2017-02-17] MEDS ORDERED: OPTIRAY 320 IV PRN (19:45)
--- NOTE | 2017-02-17 19:54 | DIAGNOSTIC IMAGING REPORT ---
ABD/PELVIS IV CONTRAST ONLY CT DOSE: 487.42 mGy.cm HISTORY: Pain left flank pain TECHNIQUE: Multiaxial CT images of the abdomen and pelvis were performed following the use of intravenous contrast. A dose lowering technique was utilized adhering to the principles of ALARA. COMPARISON STUDY: 08/17/2016 FINDINGS: Mild bibasilar atelectatic and/or infiltrative change. Prior cholecystectomy. Liver spleen and pancreas are unremarkable. Kidneys enhance uniformly. There is increased prominence of the left renal pelvis and left renal collecting system. There is a 5 mm obstructing calculus mid left ureter. There is bowel pattern overall is nonobstructive. There is increased fecal load within the sigmoid. There are components of chronic sigmoid diverticulosis. There is no evidence for acute sigmoid diverticulitis. There is trace amount of free cul-de-sac fluid. Bladder is midline. Prostate is enlarged. IMPRESSION: 1. Obstructing calculus mid left ureter measuring 5 mm.. 2. Mild left hydroureteronephrosis. 3. Increased fecal load within the sigmoid colon consistent with fecal stasis. Mild chronic colonic diverticulosis. 4. Bibasilar atelectatic and/or infiltrative changes considered minimal. The above report was generated using voice recognition software. It may contain grammatical, syntax or spelling errors. Electronically signed by: Anthony Byrd M.D. 02/17/2017 7:52 PM Dictated Date/Time: 02/17/2017 7:48 PM
[2017-02-17] MEDS ORDERED: TAMSULOSIN HCL 0.4 MG CAP PO ONE (20:15)
[2017-02-17] MEDS ORDERED: TAMS0.4C38 PO (20:17)
[2017-02-17] MEDS ORDERED: ONDA4TAB10 SL (20:17)
[2017-02-17 20:20] VITALS: BP 128/82; PULSE 68; O2SAT 96
[2017-02-17] MEDS ORDERED: OXYCODONE IR HOME PACK PO ONE (20:30)
== END 2017-02-17 20:36 | disposition home or self-care (01) ==
LOC: C.EDB 17:37 → C.EDC 20:36
DX: N13.2 Hydronephrosis with renal and ureteral calculous obstruction (principal); N40.1 Benign prostatic hyperplasia with lower urinary tract symptoms; I10 Essential (primary) hypertension; Z87.442 Personal history of urinary calculi; N28.9 Disorder of kidney and ureter, unspecified; Z87.01 Personal history of pneumonia (recurrent); Z90.49 Acquired absence of other specified parts of digestive tract; Z80.9 Family history of malignant neoplasm, unspecified; Z82.49 Family history of ischemic heart disease and other diseases of the circulatory system; Z84.1 Family history of disorders of kidney and ureter

== ENCOUNTER → 2017-03-03 | Outpatient (CLI) | payer OTHER ==
[~2017-03-03] MED LIST changes: +ONDA4TAB10 SL
--- NOTE | 2017-03-03 15:51 | DIAGNOSTIC IMAGING REPORT ---
KUB CLINICAL HISTORY: Nephrolithiasis. FINDINGS: 2 AP supine abdominal radiographs are correlated with abdominal CT dated 02/17/2017. There is a nonobstructed abdominal bowel gas pattern. Moderate colonic fecal retention is observed. Cholecystectomy clips are seen in the right upper quadrant. There is a 5 mm calculus identified in the left hemipelvis. This is consistent with a distal left ureteral stone. No additional calculi are clearly seen in either kidney. The bony structures appear intact. IMPRESSION: A 5 mm obstructing calculus is seen in the distal left ureter. Electronically signed by: Harvey Wooten M.D. 03/03/2017 3:50 PM Dictated Date/Time: 03/03/2017 3:38 PM
== END | disposition home or self-care (01) ==
LOC: C.RAD 15:18
PROVIDERS: ATTEND Urology
DX: N20.1 Calculus of ureter (principal); N41.9 Inflammatory disease of prostate, unspecified

== ENCOUNTER → 2017-03-17 | Outpatient (CLI) | payer OTHER ==
--- NOTE | 2017-03-17 15:44 | DIAGNOSTIC IMAGING REPORT ---
ULTRASOUND KIDNEYS AND BLADDER CLINICAL HISTORY: Erectile dysfunction. COMPARISON STUDY: Abdominal CT dated 02/17/2017. TECHNIQUE: Real-time, grayscale, and color flow sonography of the kidneys and bladder is performed. Images are reviewed in the transverse and longitudinal planes. FINDINGS: Kidneys: The kidneys are normal in size and echotexture. The right kidney measures 10.3 x 5.1 x 4.6 cm and the left kidney measures 10.8 x 5.6 x 4.8 cm. There is no hydronephrosis. No shadowing renal calculi are identified. There is no sonographic evidence of contour deforming renal mass lesion. No perinephric fluid is identified. Bladder: The wall is thickened and trabeculated. The prostate gland is enlarged and there is median lobe hypertrophy. A left ureteral jet was seen. IMPRESSION: 1. The kidneys are normal in size and without hydronephrosis. 2. Prostatomegaly with evidence of chronic bladder outlet obstruction. Electronically signed by: Harvey Wooten M.D. 03/17/2017 3:43 PM Dictated Date/Time: 03/17/2017 3:42 PM
== END | disposition home or self-care (01) ==
LOC: C.ULTR 14:31
PROVIDERS: ATTEND Urology
DX: N52.9 Male erectile dysfunction, unspecified (principal); N40.0 Benign prostatic hyperplasia without lower urinary tract symptoms; N32.0 Bladder-neck obstruction

== ENCOUNTER → 2017-04-04 | Outpatient (CLI) | payer OTHER ==
[~2017-04-04] MED LIST changes: +FLM4 PO
--- NOTE | 2017-04-04 14:04 | DIAGNOSTIC IMAGING REPORT ---
KUB CLINICAL HISTORY: 66 years-old Male presenting with N52.9 Erectile [id number]. TECHNIQUE: Single supine view of the abdomen was obtained. COMPARISON: 03/03/[address] from 02/17/2017. FINDINGS: Cholecystectomy clips noted. Nonobstructive bowel gas pattern. No gross pneumoperitoneum. Moderate stool burden in the right colon. Persistent calcification over the distal left ureter. This is not changed in position since the most recent radiograph from 03/03/2017 but has progressed since prior CT from 02/17/2017. Transitional lumbosacral anatomy of L5. IMPRESSION: 1. Unchanged position of the distal left ureteral calculus. Electronically signed by: Richar Nina M.D. 04/04/2017 2:03 PM Dictated Date/Time: 04/04/2017 2:00 PM
[2017-04-04 15:06] LABS: BLOOD UREA NITROGEN 16 mg/dl (7-18)
== END | disposition home or self-care (01) ==
LOC: C.RAD 12:36
PROVIDERS: ATTEND Urology
DX: N52.9 Male erectile dysfunction, unspecified (principal); N20.1 Calculus of ureter

== ENCOUNTER → 2017-04-14 | Outpatient (CLI) | payer OTHER ==
[~2017-04-14] MED LIST changes: -DICY10CA55 PO; -DOCU100C31 PO; +HYDR-5688 PO; -MELA3TAB12 PO; -ONDA4TAB10 SL
--- NOTE | 2017-04-14 15:52 | DIAGNOSTIC IMAGING REPORT ---
KUB HISTORY: Follow-up study in a patient with left-sided ureteral calculus and lithotripsy N20.1 Left ureteral stone COMPARISON: KUB 04/04/2017 and 03/03/2017, CT 02/17/2017 FINDINGS: The bowel gas pattern is non-obstructive. There is no organomegaly. 5 mm calcification of the left hemipelvis correlates with previously identified distal left ureteral calculus, unchanged in positioning. No additional ureteral or renal calculi are identified. Cholecystectomy clips are present. Degenerative changes are noted within the lower lumbar spine. No pneumoperitoneum or pneumatosis. No fracture. Surgical clips project over the right scrotal region. IMPRESSION: Unchanged positioning of distal left ureteral calculus. Electronically signed by: Harsh Borja M.D. 04/14/2017 3:50 PM Dictated Date/Time: 04/14/2017 3:47 PM
== END | disposition home or self-care (01) ==
LOC: C.RAD 14:51
PROVIDERS: ATTEND Urology
DX: N20.1 Calculus of ureter (principal)

== ENCOUNTER → 2017-04-15 | Day surgery (SDC) | payer OTHER ==
[2017-04-05 15:30] VITALS: Ht 175.3 cm; Wt 84.1 kg
--- NOTE | 2017-04-07 10:38 | DIAGNOSTIC IMAGING REPORT ---
CHEST 2 VIEWS ROUTINE CLINICAL HISTORY: Left ureteral stone. COMPARISON STUDY: Chest radiograph February 16, 2017. FINDINGS: Lung lungs are at the lower limits of normal. There is no evidence for pulmonary edema. There is no consolidation to suggest pneumonia. Mild bilateral lower lung increased markings suggest atelectasis. Cardiac size is normal. Mediastinal contours are normal. There is no pneumothorax or pleural effusion. There are cholecystectomy clips. IMPRESSION: No acute cardiopulmonary findings. Electronically signed by: Mark Martin M.D. 04/07/2017 10:36 AM Dictated Date/Time: 04/07/2017 10:35 AM
[2017-04-07 12:30] LABS: CREATININE 1.03 mg/dl (0.60-1.40)
[2017-04-07 12:46] LABS: HEMATOCRIT 46.3 % (42-52); MEAN CELL VOLUME 89.6 fL (80-100); MEAN CORPUSCULAR HEMOGLOBIN 30.9 pg (25-34); MEAN CORPUSCULAR HGB CONC 34.6 g/dl (32-36); RED CELL DISTRIBUTION WIDTH CV 12.9 % (11.5-14.5); RED CELL DISTRIBUTION WIDTH SD 42.7 fL (36.4-46.3); WHITE BLOOD COUNT 6.12 K/uL (4.8-10.8)
[2017-04-07 12:58] LABS: BASO % 0.3 %; BASO ABS # 0.02 K/uL (0-0.2); EOS % 2.3 %; EOS ABS # 0.14 K/uL (0-0.5); IG# 0.02 K/uL (0.00-0.02); LYMPH % 19.9 %; LYMPH ABS # 1.22 K/uL (1.2-3.4); MEAN PLATELET VOLUME 9.7 fL (7.4-10.4); MONO % 8.2 %; NEUT ABS # 4.22 K/uL (1.4-6.5); PLATELET COUNT 185 K/uL (130-400)
[~2017-04-15] VITALS: Ht 175.3 cm; Wt 84.1 kg
[~2017-04-15] MED LIST changes: +ACETAMINOPHEN 325 MG TAB PO PRN; +ATROPINE SULFATE 0.1 MG/ML 5ML SYR IV PRN; +CIPROFLOXACIN 400MG / D5W IV SCH; +EpHEDrine SULFATE INJ 50 MG/ML AMP IV PRN; +FENTANYL CITRATE INJ 50 MCG/1 ML 2 ML VIAL IV PRN; +FENTANYL CITRATE INJ 50 MCG/1 ML 2 ML VIAL ONE; +LACTATED RINGER'S 1000ML 1,000 ML IV SCH; +LIDOCAINE HCL 2% 2 ML VIAL (20MG/ML) ONE; +MIDAZOLAM HCL 1 MG/ML 2ML VIAL ONE; +ONDANSETRON INJ 2 MG/ML 2 ML VIAL IV PRN; +ONDANSETRON INJ 2 MG/ML 2 ML VIAL ONE; +OXYCODONE/ACETAMINOPHEN 5-325 TAB PO PRN; +PROPOFOL IV EMULSION 10 MG/ML 20 ML VIAL IV ONE; +SODIUM CHLORIDE 0.9% 1000ML 1,000 ML IV SCH
--- NOTE | 2017-04-15 10:20 | History & Physical Bridge Note ---
H&P Re-Evaluation Bridge Note: I have examined the patient, reviewed the History & Physical and in the interval since the performance of the History & Physical I have noted the following changes of clinical significance: No changes noted
--- NOTE | 2017-04-15 10:48 | Discharge Instructions-SurgCtr ---
Discharge Instructions Date of Service Apr 15, 2017. Visit Reason for Visit: Stones Discharge Discharge Diagnosis / Problem: stones Discharge Goals Goal(s): Decrease discomfort, Improve function, Increase independence, Improve disease control Medications Stopped Medications Name(s): Advil, prn-last dose over 1 week ago Activity Recommendations Activity Limitations: resume your previous activity Lifting Limitations: none Exercise/Sports Limitations: none May Resume Sexual Activity: when tolerated Shower/Bathe: no limitations Driving or Machine Use: resume 1 day after discharge Anesthesia . Post Anesthesia Instructions: If you have had General Anesthesia or IV Sedation: * Do not drive today. * Resume driving when surgeon permits. * Do not make important decisions or sign legal documents today. * Call surgeon for: 1. Temperature elevations greater than 101 degrees F. 2. Uncontrollable pain. 3. Excessive bleeding. 4. Persistent nausea and vomiting. 5. Medication intolerance (nausea, vomiting or rash). * For nausea and vomiting use only clear liquids such as: tea, soda, bouillon until nausea subsides, then gradually increase diet as tolerated. * If you have any concerns or questions, call your surgeon's office. If physician is unavailable and it is an emergency, call 911 or go to the nearest emergency room. . Instructions / Follow-Up Instructions / Follow-Up Please keep your previously scheduled follow up appointment Diet Recommendations Home Diet: no limitations, resume previous diet Pending Studies Studies pending at discharge: no Medical Emergencies . Who to Call and When: Medical Emergencies: If at any time you feel your situation is an emergency, please call 911 immediately. . Non-Emergent Contact Non-Emergency issues call your: Urologist Call Non-Emergent contact if: you have a fever, temperature is above 101.5, your pain is not controlled, your pain is worsening . . "Provider Documentation" section prepared by Ramin Man. .
--- NOTE | 2017-04-15 10:50 | [facility] Operative Report ---
Operative Report Operative Date Apr 15, 2017. Pre-Operative Diagnosis left ureteral calc Post-Operative Diagnosis left ureteral calc Procedure(s) Performed L ESWL Surgeon Dania Wisdom Estimated Blood Loss 0cc Drains None Anesthesia Type General Complication(s) none Disposition yes Recovery Room / PACU Indications L ureteral stone Description of Procedure The patient was identified in the preoperative holding area, appropriate informed consent was reviewed and completed and the patient was transported to the operating suite. Upon arrival appropriate preoperative antibiotics were administered and general anesthesia induced. The patient was placed in supine position and the stone was localized under fluoroscopy. A total of 3000 shocks were delivered to the stone. There appeared to be good fragmentation of the stone. Details of this procedure can be found on the [facility] information sheet. At the conclusion of the case the patient was extubated and taken to the PACU in stable condition. There were no complications. I attest to the content of the Intraoperative Record and any orders documented therein. Any exceptions are noted below.
[2017-04-15 12:09] VITALS: TEMP 36.8
--- NOTE | 2017-04-15 12:27 | Anesthesia Progress Nt - [facility] ---
Anesthesia Post Op Note Date & Time Apr 15, 2017 at 12:27 Vital Signs Pain Intensity: 0 Vital Signs Past 12 Hours Date Time Temp Pulse Resp B/P (MAP) Pulse Ox O2 Delivery O2 Flow Rate FiO2 04/15/17 12:09 36.8 64 16 110/72 (85) 96 Room Air 04/15/17 12:01 36.8 66 16 107/73 98 Room Air 04/15/17 11:56 66 15 94 04/15/17 11:56 66 15 04/15/17 11:55 105/76 04/15/17 11:51 66 10 04/15/17 11:51 65 10 96 04/15/17 11:50 106/69 04/15/17 11:46 66 14 04/15/17 11:46 65 14 98 04/15/17 11:45 105/71 04/15/17 11:41 65 12 97 04/15/17 11:41 64 12 04/15/17 11:40 103/70 04/15/17 11:36 63 13 04/15/17 11:36 63 13 98 04/15/17 11:35 102/68 04/15/17 11:31 64 13 97 04/15/17 11:31 64 13 04/15/17 11:30 106/70 04/15/17 11:28 63 12 04/15/17 11:28 63 12 98 04/15/17 11:27 102/70 04/15/17 11:23 62 12 04/15/17 11:23 62 12 96 04/15/17 11:20 107/76 04/15/17 11:18 66 04/15/17 11:18 36.4 65 16 111/76 97 Mask 7 04/15/17 11:18 66 111/76 95 04/15/17 07:56 36.6 92 16 127/76 (93) 95 Room Air Notes Mental Status: alert / awake / arousable, participated in evaluation Pt Amnestic to Procedure: Yes Nausea / Vomiting: adequately controlled Pain: adequately controlled Airway Patency, RR, SpO2: stable & adequate BP & HR: stable & adequate Hydration State: stable & adequate Anesthetic Complications: no major complications apparent
[2017-04-15 12:36] VITALS: BP 114/72; PULSE 66; O2SAT 98
== END | disposition home or self-care (01) ==
LOC: X.SURG 07:49
PROVIDERS: ATTEND Urology
DX: N20.1 Calculus of ureter (principal); N20.0 Calculus of kidney; N40.1 Benign prostatic hyperplasia with lower urinary tract symptoms; N52.9 Male erectile dysfunction, unspecified; N41.9 Inflammatory disease of prostate, unspecified; I10 Essential (primary) hypertension; Z82.49 Family history of ischemic heart disease and other diseases of the circulatory system; Z79.899 Other long term (current) drug therapy; Z87.891 Personal history of nicotine dependence

== ENCOUNTER → 2017-04-26 | Outpatient (CLI) | payer OTHER ==
[~2017-04-26] MED LIST changes: -ACETAMINOPHEN 325 MG TAB PO PRN; -ATROPINE SULFATE 0.1 MG/ML 5ML SYR IV PRN; -CIPROFLOXACIN 400MG / D5W IV SCH; -EpHEDrine SULFATE INJ 50 MG/ML AMP IV PRN; -FENTANYL CITRATE INJ 50 MCG/1 ML 2 ML VIAL IV PRN; -FENTANYL CITRATE INJ 50 MCG/1 ML 2 ML VIAL ONE; -LACTATED RINGER'S 1000ML 1,000 ML IV SCH; -LIDOCAINE HCL 2% 2 ML VIAL (20MG/ML) ONE; -MIDAZOLAM HCL 1 MG/ML 2ML VIAL ONE; -ONDANSETRON INJ 2 MG/ML 2 ML VIAL IV PRN; -ONDANSETRON INJ 2 MG/ML 2 ML VIAL ONE; -OXYCODONE/ACETAMINOPHEN 5-325 TAB PO PRN; -PROPOFOL IV EMULSION 10 MG/ML 20 ML VIAL IV ONE; -SODIUM CHLORIDE 0.9% 1000ML 1,000 ML IV SCH
--- NOTE | 2017-04-26 13:49 | DIAGNOSTIC IMAGING REPORT ---
KUB CLINICAL HISTORY: N20.1 Left ureteral stoneTO BE DONE EITHER THE NIGHT BEFORE OR COMPARISON STUDY: 04/14/2017 FINDINGS: Nonobstructive bowel pattern. Unchanged position of the distal left ureteral calculus. No additional or new calcifications. IMPRESSION: Unchanged position of the distal left ureteral calculus. The above report was generated using voice recognition software. It may contain grammatical, syntax or spelling errors. Electronically signed by: Anthony Byrd M.D. 04/26/2017 1:48 PM Dictated Date/Time: 04/26/2017 1:47 PM
== END | disposition home or self-care (01) ==
LOC: C.RAD 13:28
PROVIDERS: ATTEND Urology
DX: N20.1 Calculus of ureter (principal)

== ENCOUNTER → 2017-05-05 | Outpatient (CLI) | payer OTHER ==
[~2017-05-05] MED LIST changes: -HYDR-5688 PO; +OXYC-57 PO
--- NOTE | 2017-05-05 15:18 | DIAGNOSTIC IMAGING REPORT ---
KUB CLINICAL HISTORY: N20.1 Left ureteral stone nephrocalcinosis COMPARISON STUDY: 04/26/2017 FINDINGS: The soft tissues, psoas shadows, renal outlines and intestinal gas pattern appear normal. There is no evidence for bowel obstruction. No abnormal abdominal calcifications are seen. Within the left lateral pelvis is a 5 mm calcification of the distal left ureter. This is unchanged in position. IMPRESSION: 5 mm calcification distal left ureter unchanged from the prior study. The above report was generated using voice recognition software. It may contain grammatical, syntax or spelling errors. Electronically signed by: Anthony Byrd M.D. 05/05/2017 3:17 PM Dictated Date/Time: 05/05/2017 3:16 PM
== END | disposition home or self-care (01) ==
LOC: C.RAD 14:51
PROVIDERS: ATTEND Urology
DX: N20.1 Calculus of ureter (principal)

== ENCOUNTER → 2017-05-06 | Day surgery (SDC) | payer OTHER ==
[2017-04-29 10:49] VITALS: Ht 175.3 cm; Wt 84.1 kg
[~2017-05-06] VITALS: Ht 175.3 cm; Wt 84.1 kg
[~2017-05-06] MED LIST changes: +ATROPINE SULFATE 0.1 MG/ML 5ML SYR IV PRN; +CIPROFLOXACIN 400MG / D5W IV SCH; +DEXAMETHASONE SOD INJ 4 MG/ML VIAL IV PRN; +DEXAMETHASONE SOD INJ 4 MG/ML VIAL ONE; +EpHEDrine SULFATE INJ 50 MG/ML AMP IV PRN; +FENTANYL CITRATE INJ 50 MCG/1 ML 2 ML VIAL IV PRN; +FENTANYL CITRATE INJ 50 MCG/1 ML 2 ML VIAL ONE; +KETOROLAC TROMETHAMINE 15 MG/ML VIAL IV. PRN; +LABETALOL HCL IV 5 MG/ML 20ML IV PRN; +LACTATED RINGER'S 1000ML 1,000 ML IV SCH; +LIDOCAINE HCL 2% 2 ML VIAL (20MG/ML) ONE; +MIDAZOLAM HCL 1 MG/ML 2ML VIAL ONE; +MoRPHine SULFATE 10 MG/ML CARP/VIAL IV PRN; +ONDANSETRON INJ 2 MG/ML 2 ML VIAL IV PRN; +ONDANSETRON INJ 2 MG/ML 2 ML VIAL ONE; +OXYCODONE/ACETAMINOPHEN 5-325 TAB PO PRN; +PHENYLEPHRINE 100MCG/ML 5ML SYR IV PRN; +PROPOFOL IV EMULSION 10 MG/ML 20 ML VIAL IV ONE
--- NOTE | 2017-05-06 12:17 | [facility] Operative Report ---
Operative Report Operative Date May 06, 2017. Pre-Operative Diagnosis Left Ureteral Calculi Post-Operative Diagnosis Same Procedure(s) Performed Left Extracorporeal Shock Wave Lithotripsy, Repeat Surgeon Dr. Disha Hernandez Outbound Supervisor Surgeon(s) None Estimated Blood Loss 0 Findings distal left ureteral stone Specimens None Drains None Anesthesia Type General Complication(s) none Disposition yes Recovery Room / PACU Indications distal left ureteral stone Description of Procedure Patient was identified in the preoperative holding area, appropriate informed consent was reviewed and completed and the patient was transported to the operating suite. Upon arrival appropriate preoperative antibiotics were administered and general anesthesia induced. The patient was placed in supine position and the stone was localized under fluoroscopy. A total of [_3000__] shocks were delivered to the stone. There appeared to be good fragmentation of the stone. Details of this procedure can be found on the [facility] information sheet. At the conclusion of the case the patient was extubated and taken to the PACU in stable condition. There were no complications. I attest to the content of the Intraoperative Record and any orders documented therein. Any exceptions are noted below.
--- NOTE | 2017-05-06 12:19 | Discharge Instructions-SurgCtr ---
Discharge Instructions Date of Service May 06, 2017. Visit Reason for Visit: Stones Discharge Discharge Diagnosis / Problem: left ureteral stone Discharge Goals Goal(s): Therapeutic intervention Medications Stopped Medications Name(s): held advil for ten days Activity Recommendations Activity Limitations: per Instructions/Follow-up section Exercise/Sports Limitations: rest today May Resume Sexual Activity: when tolerated Shower/Bathe: no limitations Driving or Machine Use: resume 1 day after discharge Anesthesia . Post Anesthesia Instructions: If you have had General Anesthesia or IV Sedation: * Do not drive today. * Resume driving when surgeon permits. * Do not make important decisions or sign legal documents today. * Call surgeon for: 1. Temperature elevations greater than 101 degrees F. 2. Uncontrollable pain. 3. Excessive bleeding. 4. Persistent nausea and vomiting. 5. Medication intolerance (nausea, vomiting or rash). * For nausea and vomiting use only clear liquids such as: tea, soda, bouillon until nausea subsides, then gradually increase diet as tolerated. * If you have any concerns or questions, call your surgeon's office. If physician is unavailable and it is an emergency, call 911 or go to the nearest emergency room. . Instructions / Follow-Up Instructions / Follow-Up MEDICATIONS: Resume previous medications unless instructed otherwise by your surgeon. Resume pre-ES[facility] medication except for aspirin, coumadin or other blood thinners. __ Toradol 10 mg every 6 hours for initial pain. __ Lortab 5 mg 1-2 every 4 hours for pain. _x_ Percocet 5 mg 1-2 every 4 hours for pain. __ Macrodantin 50 mg x 3 a day. __ Flomax 1 tab daily one half (1/2) hour after supper. SPECIAL CARE INSTRUCTIONS: 1. Get KUB (x-ray) _x_ day before or day of office visit and bring x-ray to office __ get x-ray 2 days before and tell office you are getting x-rays when you call for the appointment. 2. Strain ALL urine. 3. Please call if you have a fever, chills, severe pain, or constant dribbling of urine. 4. Office phone number . FOLLOW UP VISIT: Please call the office to schedule a follow-up appointment at . Diet Recommendations Home Diet: resume previous diet Procedures Procedures Performed: Left Extracorporeal Shock Wave Lithotripsy, Repeat Pending Studies Studies pending at discharge: no Medical Emergencies . Who to Call and When: Medical Emergencies: If at any time you feel your situation is an emergency, please call 911 immediately. . Non-Emergent Contact Non-Emergency issues call your: Urologist Call Non-Emergent contact if: temperature is above 101.5, your pain is not controlled . . "Provider Documentation" section prepared by Alejandro Hernandez. . [place] Drug Monitoring Program Search Results: patient reviewed within database
[2017-05-06 13:29] VITALS: TEMP 36.4
--- NOTE | 2017-05-06 13:45 | Anesthesia Progress Nt - [facility] ---
Anesthesia Post Op Note Date & Time May 06, 2017 at 13:45 Vital Signs Pain Intensity: 0 Vital Signs Past 12 Hours Date Time Temp Pulse Resp B/P (MAP) Pulse Ox O2 Delivery O2 Flow Rate FiO2 05/06/17 13:29 36.4 79 16 114/74 (87) 95 Room Air 05/06/17 13:21 36.4 75 16 110/65 96 Room Air 05/06/17 13:16 86 15 93 05/06/17 13:16 85 15 05/06/17 13:15 103/67 05/06/17 13:11 85 18 95 05/06/17 13:11 84 18 05/06/17 13:10 115/64 05/06/17 13:06 78 14 05/06/17 13:06 78 14 100/66 96 05/06/17 13:01 77 14 99 05/06/17 13:01 77 14 05/06/17 13:00 118/70 05/06/17 12:56 77 16 100 05/06/17 12:56 77 16 05/06/17 12:55 119/72 05/06/17 12:51 70 13 100 05/06/17 12:51 70 13 05/06/17 12:50 36.6 73 16 114/67 99 Mask 05/06/17 12:50 111/66 05/06/17 12:49 74 114/67 98 05/06/17 12:49 77 05/06/17 09:55 36.5 88 16 110/73 (85) 96 Room Air Notes Mental Status: alert / awake / arousable, participated in evaluation Pt Amnestic to Procedure: Yes Nausea / Vomiting: adequately controlled Pain: adequately controlled Airway Patency, RR, SpO2: stable & adequate BP & HR: stable & adequate Hydration State: stable & adequate Anesthetic Complications: no major complications apparent
[2017-05-06 13:50] VITALS: BP 122/74; PULSE 81; O2SAT 97
== END | disposition home or self-care (01) ==
LOC: X.SURG 09:58
PROVIDERS: ATTEND Urology
DX: N20.1 Calculus of ureter (principal); I10 Essential (primary) hypertension; M19.90 Unspecified osteoarthritis, unspecified site; R97.20 Elevated prostate specific antigen [PSA]; N40.1 Benign prostatic hyperplasia with lower urinary tract symptoms; N52.9 Male erectile dysfunction, unspecified; Z87.891 Personal history of nicotine dependence; Z91.041 Radiographic dye allergy status; Z90.49 Acquired absence of other specified parts of digestive tract; Z82.49 Family history of ischemic heart disease and other diseases of the circulatory system

== ENCOUNTER → 2017-05-09 | Outpatient (CLI) | payer OTHER ==
[~2017-05-09] MED LIST changes: -ATROPINE SULFATE 0.1 MG/ML 5ML SYR IV PRN; -CIPROFLOXACIN 400MG / D5W IV SCH; -DEXAMETHASONE SOD INJ 4 MG/ML VIAL IV PRN; -DEXAMETHASONE SOD INJ 4 MG/ML VIAL ONE; -EpHEDrine SULFATE INJ 50 MG/ML AMP IV PRN; -FENTANYL CITRATE INJ 50 MCG/1 ML 2 ML VIAL IV PRN; -FENTANYL CITRATE INJ 50 MCG/1 ML 2 ML VIAL ONE; -KETOROLAC TROMETHAMINE 15 MG/ML VIAL IV. PRN; -LABETALOL HCL IV 5 MG/ML 20ML IV PRN; -LACTATED RINGER'S 1000ML 1,000 ML IV SCH; -LIDOCAINE HCL 2% 2 ML VIAL (20MG/ML) ONE; -MIDAZOLAM HCL 1 MG/ML 2ML VIAL ONE; -MoRPHine SULFATE 10 MG/ML CARP/VIAL IV PRN; -ONDANSETRON INJ 2 MG/ML 2 ML VIAL IV PRN; -ONDANSETRON INJ 2 MG/ML 2 ML VIAL ONE; -OXYCODONE/ACETAMINOPHEN 5-325 TAB PO PRN; -PHENYLEPHRINE 100MCG/ML 5ML SYR IV PRN; -PROPOFOL IV EMULSION 10 MG/ML 20 ML VIAL IV ONE
== END | disposition home or self-care (01) ==
LOC: C.LAB 12:30
PROVIDERS: ATTEND Urology
DX: N20.0 Calculus of kidney (principal)

== ENCOUNTER → 2017-05-13 | Outpatient (CLI) | payer OTHER ==
--- NOTE | 2017-05-13 14:04 | DIAGNOSTIC IMAGING REPORT ---
KUB HISTORY: Left-sided stones. Right flank pain. COMPARISON: KUB 05/05/2017. FINDINGS: The bowel gas pattern is unremarkable. There are no dilated loops of small bowel to suggest an obstruction. The kidneys are partially by overlying bowel gas. No renal calculi identified. No right ureteral calculi. Stable 5 mm calcification within the left deep pelvis. No pneumoperitoneum or pneumatosis. IMPRESSION: 1. No change in the 5 mm distal left ureteral stone. 2. No renal or right ureteral calculi identified. Electronically signed by: Dell Marshall M.D. 05/13/2017 2:03 PM Dictated Date/Time: 05/13/2017 2:01 PM
== END | disposition home or self-care (01) ==
LOC: C.RAD 13:35
PROVIDERS: ATTEND Urology
DX: N23 Unspecified renal colic (principal)

== ENCOUNTER → 2017-05-17 | Outpatient (CLI) | payer OTHER ==
--- NOTE | 2017-05-17 17:05 | DIAGNOSTIC IMAGING REPORT ---
KUB CLINICAL HISTORY: Nephrolithiasis. FINDINGS: 2 AP supine abdominal radiographs are compared to study dated 05/13/2017 and correlated with abdominal CT dated 02/17/2017. There is a nonobstructed abdominal bowel gas pattern. Moderate colonic fecal retention is observed. Cholecystectomy clips are seen in the right upper quadrant. There is unchanged position of a 5 mm calculus at the left vesicoureteral junction as compared to recent prior studies. No additional calculi are clearly seen in either kidney. The bony structures appear intact. IMPRESSION: Unchanged appearance of a 5 mm obstructing calculus at the left vesicoureteral junction as compared to 05/13/2017. Electronically signed by: Harvey Wooten M.D. 05/17/2017 5:03 PM Dictated Date/Time: 05/17/2017 5:02 PM
== END | disposition home or self-care (01) ==
LOC: C.RAD 14:43
PROVIDERS: ATTEND Urology
DX: N20.1 Calculus of ureter (principal)

== ENCOUNTER → 2017-05-30 | Outpatient (CLI) | payer OTHER ==
[~2017-05-30] MED LIST changes: +OPTIRAY 300 IV PRN
--- NOTE | 2017-05-30 14:35 | DIAGNOSTIC IMAGING REPORT ---
ABD/PELVIS WITHOUT FOR STONE CT DOSE: 418.94 mGy.cm HISTORY: Nephrocalcinosis DO SCAN PER DR CLAIRE, RADIOLOGY TOMOGRAPHY DOWN TECHNIQUE: Multiaxial CT images of the abdomen and pelvis were performed without the use of intravenous and oral contrast according to the standard department stone protocol. A dose lowering technique was utilized adhering to the principles of ALARA. COMPARISON STUDY: 02/17/2017. Abdomen dated 05/17/2017 FINDINGS: This study was performed as the intravenous unit tomographic unit as well as additional abutment was inoperable due to downtime repair. The kidneys are negative for hydronephrosis. The 5 mm calculus previously described at the level of the mid left ureter has migrated distally and is now 1.5 cm proximal to the left ureteral vesicle junction. There are no additional bladder calcifications. Chronic sigmoid diverticulosis is noted. The prostate is enlarged. IMPRESSION: 1. Limited study demonstrating distal migration of a mid left ureteral calculus on the patient's prior CT study. 2. It now is proximal to the left ureterovesical junction and is similar in location to the abdominal series dated 05/17/2017 3. The patient will not be charged for this CT examination due to machine downtime and failure The above report was generated using voice recognition software. It may contain grammatical, syntax or spelling errors. Electronically signed by: Anthony Claire M.D. 05/30/2017 2:34 PM Dictated Date/Time: 05/30/2017 2:29 PM
[2017-05-30 14:42] LABS: HEMATOCRIT 46.1 % (42-52); MEAN CELL VOLUME 89.2 fL (80-100); MEAN CORPUSCULAR HEMOGLOBIN 30.9 pg (25-34); MEAN CORPUSCULAR HGB CONC 34.7 g/dl (32-36); MEAN PLATELET VOLUME 9.8 fL (7.4-10.4); PLATELET COUNT 162 K/uL (130-400); RED CELL DISTRIBUTION WIDTH CV 12.8 % (11.5-14.5); WHITE BLOOD COUNT 6.33 K/uL (4.8-10.8)
[2017-05-30 14:58] LABS: IG# 0.02 K/uL (0.00-0.02); LYMPH % 9.8 %; LYMPH ABS # 0.62 K/uL (1.2-3.4); MONO % 1.4 %; MONO ABS # 0.09 K/uL (0.11-0.59); NEUT % 88.5 %
--- NOTE | 2017-05-30 15:05 | DIAGNOSTIC IMAGING REPORT ---
IVP W/OR W/O TOMOGRAMS CLINICAL HISTORY: N20.1 Left ureteral stone nephrocalcinosis COMPARISON STUDY: CT same date. Abdomen 05/17/2017 FINDINGS: Survey film confirms a 5 mm calcification within the distal left ureter to persist. Bowel pattern is nonobstructive although it obscures detail of the urinary tracts. Study is performed following the administration of 50 cc nonionic contrast. There is prompt opacification of both upper urinary tracts. Ureters normal in course and caliber. There is a nonobstructing 5 mm calculus distal left ureter. Bladder shows mild bladder wall trabeculation. There is mild elevation of the bladder floor secondary to prosthetic enlargement. IMPRESSION: 5 mm nonobstructing distal left ureteral calculus. No evidence for hydronephrosis. Mild bladder wall trabeculation. The above report was generated using voice recognition software. It may contain grammatical, syntax or spelling errors. Electronically signed by: Anthony Byrd M.D. 05/30/2017 3:02 PM Dictated Date/Time: 05/30/2017 3:01 PM
[2017-05-30 15:07] LABS: BLOOD UREA NITROGEN 16 mg/dl (7-18); CALCIUM 9.5 mg/dl (8.5-10.1); CARBON DIOXIDE 26 mmol/L (21-32); GLUCOSE 119 mg/dl (70-99); POTASSIUM 4.4 mmol/L (3.5-5.1); SODIUM 135 mmol/L (136-145)
== END | disposition home or self-care (01) ==
LOC: C.RAD 12:39
PROVIDERS: ATTEND Urology
DX: N20.1 Calculus of ureter (principal)

== ENCOUNTER → 2017-06-09 | Day surgery (SDC) | payer OTHER ==
[2017-05-19 13:18] VITALS: BMI 26.0
--- NOTE | 2017-05-30 13:42 | DIAGNOSTIC IMAGING REPORT ---
CHEST 2 VIEWS ROUTINE CLINICAL HISTORY: N20.1 Left ureteral stone PREOPERATIVE CHEST COMPARISON STUDY: 04/07/2017 FINDINGS: The cardiac and mediastinal contours are normal. There is no evidence of focal pulmonary consolidation. There is no evidence of failure. No pleural effusions are visualized.[ IMPRESSION: No active disease in the chest. Electronically signed by: Brice Hair M.D. 05/30/2017 1:41 PM Dictated Date/Time: 05/30/2017 1:41 PM
[~2017-06-09] VITALS: Ht 175.3 cm; Wt 81.8 kg
[~2017-06-09] MED LIST changes: +ATROPINE SULFATE 0.1 MG/ML 5ML SYR IV PRN; +CIPR-255 PO; +CIPROFLOXACIN / D5W 400 MG IV SCH; +Cysto-Conray II 17.2% 250ML BOTTLE ONE; +DEXAMETHASONE SOD INJ 4 MG/ML VIAL ONE; +EpHEDrine SULFATE INJ 50 MG/ML AMP IV PRN; +EpHEDrine SULFATE INJ 50 MG/ML AMP ONE; +FENTANYL CITRATE INJ 50 MCG/1 ML 2 ML VIAL IV PRN; +FENTANYL CITRATE INJ 50 MCG/1 ML 2 ML VIAL ONE; +FLUT0.15; +HYDROmorphone INJ 2 MG/ML SYR/VIAL IV PRN; +LABETALOL HCL IV 5 MG/ML 20ML IV PRN; +LACTATED RINGER'S 1000ML 1,000 ML IV SCH; +LIDOCAINE HCL 2% 2 ML VIAL (20MG/ML) ONE; +MIDAZOLAM HCL 1 MG/ML 2ML VIAL ONE; +ONDANSETRON INJ 2 MG/ML 2 ML VIAL IV PRN; +ONDANSETRON INJ 2 MG/ML 2 ML VIAL ONE; -OPTIRAY 300 IV PRN; +OXYCODONE/ACETAMINOPHEN 5-325 TAB PO PRN; +PHEN-775 PO; +PHENAZOPYRIDINE HCL 200 MG TAB PO PRN; +PHENYLEPHRINE 100MCG/ML 5ML SYR IV PRN; +PROMETHAZINE HCL INJ 12.5 MG in SODIUM CHLORIDE 0.9% 50ML 50 ML IV PRN; +PROPOFOL IV EMULSION 10 MG/ML 20 ML VIAL ONE; +SODIUM CHLORIDE 0.9% INJ 10 ML VIAL ONE
--- NOTE | 2017-06-09 08:20 | DIAGNOSTIC IMAGING REPORT ---
KUB HISTORY: Follow-up study in a patient with left ureteral calculus N20.1 Left ureteral [id number] COMPARISON: CT abdomen and pelvis 05/30/2017 FINDINGS: The bowel gas pattern is non-obstructive. There is no organomegaly. Renal shadows are partially obscured by bowel gas. Punctate nonobstructing calculus of the superior pole left kidney redemonstrated. Previously noted right nephrolithiasis are not clearly seen. 5 mm calcification left hemipelvis correlates with previously noted calculus of the left ureterovesicular junction appears unchanged. Cholecystectomy clips noted. No pneumoperitoneum or pneumatosis. No fracture. IMPRESSION: 1. Unchanged positioning of the 5 mm calculus of the left ureterovesicular junction. 2. Nonobstructing left-sided nephrolithiasis. 3. Prior cholecystectomy. Electronically signed by: Harsh Borja M.D. 06/09/2017 8:19 AM Dictated Date/Time: 06/09/2017 8:17 AM
[2017-06-09 11:38] VITALS: BP 126/77; PULSE 96; TEMP 36.9; O2SAT 96; Ht 175.3 cm; Wt 81.8 kg
--- NOTE | 2017-06-09 15:49 | Discharge Instructions ---
Discharge Instructions Date of Service June 09, 2017. Admission Reason for Admission: Left Ureteral Stone Discharge Discharge Diagnosis / Problem: L ureteral stone s/p uscope, laser litho, basket , stent Discharge Goals Goal(s): Improve function, Improve disease control Activity Recommendations Activity Limitations: as noted below Lifting Limitations: no more than 25 pounds, gradually increase as tolerated Exercise/Sports Limitations: rest today, gradually increase as tolerated May Resume Sexual Activity: after follow-up appointment Shower/Bathe: no limitations Driving or Machine Use: resume 1 day after discharge . Instructions / Follow-Up Instructions / Follow-Up Follow-up in office as scheduled for stent removal with KUB Xray before visit. Current Hospital Diet Patient's current hospital diet: Discharge Diet Recommended Diet: Regular Diet (good fluid intake) Procedures Procedures Performed: Cystoscopy, left retrograde pyelography, left semirigid ureteroscopy with laser lithotripsy, basket stone extraction, left ureteral stent placement Pending Studies Studies pending at discharge: yes List of pending studies: Stones for chemical analysis Medical Emergencies . Who to Call and When: Medical Emergencies: If at any time you feel your situation is an emergency, please call 911 immediately. . Non-Emergent Contact Non-Emergency issues call your: Urologist Call Non-Emergent contact if: you have a fever, temperature is above 101, your pain is not controlled, your pain is worsening, your pain is unusual for you, your pain is concerning you, you have any medication questions . . "Provider Documentation" section prepared by Momo Salvador. . [place] Drug Monitoring Program Search Results: patient reviewed within database, see additional documentation Drug Monitoring Findings: Last prescriptions in the perioperative period 1 month ago
--- NOTE | 2017-06-09 15:55 | [facility] Operative Report ---
Operative Report Operative Date June 09, 2017. Pre-Operative Diagnosis Persistent left distal ureteral stone Post-Operative Diagnosis Persistent left distal ureteral stone Procedure(s) Performed Cystoscopy, left retrograde pyelography, left semirigid ureteroscopy with laser lithotripsy, basket stone extraction, left ureteral stent placement Surgeon Dr. Margi Salvador Efficiency Miner Blasting Surgeon(s) NA Estimated Blood Loss 5cc Findings BPH, left distal ureteral stone as noted on previous imaging, good stent position after completion of case, no ureteral injury or residual stone noted. Specimens A. Left distal ureteral stone for chemical analysis Drains Left-sided 6 [place] multilength stent Anesthesia Type General Complication(s) none Disposition no Recovery Room / PACU Indications 67-year-old male with a history of stone disease in the left distal ureter which persists despite lithotripsy 2. Please see H&P for further details. He is here today for endoscopic management of his disease. Intravenous ciprofloxacin was provided for antibiotic coverage and SCDs used for DVT prophylaxis. Description of Procedure Patient was properly identified and brought into the operative suite after identification for proper consent the chart. General anesthesia with laryngeal mask was initiated and patient was prepped and draped in standard fashion for this procedure. Full timeout procedure was followed. 22 [place] rigid cystoscope was passed into the bladder under direct visualization demonstrate an enlarged prostate with a median lobe element of intravesical extension. No intercostal tumors, papillary lesions or masses were noted. Grade 2 trabeculation was present. Ureteral orifices were thankfully visualized in the normal anatomic location behind the median lobe. Left-sided ureteral orifice was addressed and retrograde pyelography was performed. Some J hooking of the ureter was present but this was able to be bypassed using an angled sensor tip wire. Filling defect in the distal ureter consistent with the patient's IVP images was appreciated. A semirigid ureteroscope was placed over a second working sensor wire and advanced into the left distal ureter without difficulties or resistance. Stone was encountered, fragmented and smaller pieces using a 200 m fiber then grasped using the 0 tip basket and removed from the patient. These were sent for chemical analysis. Ureteroscope was reintroduced into the ureter and advanced to the level of the proximal ureter without resistance or difficulties demonstrating no evidence of residual stones , lesions or obstructive elements. Complete exit ureteroscopy was performed demonstrating no ureteral tears or injuries on the way out. Cystoscope was backloaded over the safety wire and a 6 [place] multilength ureteral stent was advanced with redundant coil is present both within the renal pelvis within the bladder. Bladder was drained and cystoscope was removed. Anesthesia was reversed and patient was transferred to the recovery room in stable condition. Follow-up instructions: Patient will be provided with a short course of antibiotics, analgesics and Pyridium. Outpatient appointment for cystoscopy and stent removal with KUB previously is confirmed. Patient instructed to contact our service should he note any fevers, chills, nausea, vomiting or other difficulties in the postoperative period. I attest to the content of the Intraoperative Record and any orders documented therein. Any exceptions are noted below.
--- NOTE | 2017-06-09 16:27 | Anesthesiology Progress Note ---
Anesthesia Post Op Note Date & Time June 09, 2017 at 16:27 Vital Signs Pain Intensity: 0 Vital Signs Past 12 Hours Date Time Temp Pulse Resp B/P (MAP) Pulse Ox O2 Delivery O2 Flow Rate FiO2 06/09/17 16:20 73 16 103/63 96 Oxymask 10 06/09/17 16:10 73 16 125/76 99 Oxymask 10 06/09/17 16:01 36.3 83 16 124/77 97 Oxymask 10 06/09/17 11:38 36.9 96 16 126/77 (93) 96 Room Air Notes Mental Status: alert / awake / arousable, participated in evaluation Pt Amnestic to Procedure: Yes Nausea / Vomiting: adequately controlled Pain: adequately controlled Airway Patency, RR, SpO2: stable & adequate BP & HR: stable & adequate Hydration State: stable & adequate Anesthetic Complications: no major complications apparent
[2017-06-09 16:37] VITALS: BP 113/76; PULSE 70; TEMP 36.7; O2SAT 96
--- NOTE | 2017-06-09 16:57 | DIAGNOSTIC IMAGING REPORT ---
L RETROGRADE INCLUDES KUB CLINICAL HISTORY: 67 years-old Male presenting with CYSTO, LEFT URETEROSCOPY, STENT PLACEMENT. TECHNIQUE: 4 fluoroscopic image(s) recorded as part of an intraoperative procedure. COMPARISON: Abdominal radiograph from earlier today as well as CT from 05/30/2017. FINDINGS/IMPRESSION: A catheter was introduced into the left ureter and the ureter opacified with contrast. Subsequently a guidewire was introduced and a left ureteral stent placed Please see surgical report for further details. Dose area product (mGy.cm^2): 3549.3. Fluoroscopy time: 59.6 seconds. Number of fluoroscopic spot images: 0. Electronically signed by: Richar Nina M.D. 06/09/2017 4:56 PM Dictated Date/Time: 06/09/2017 4:54 PM
[2017-06-09 17:07] VITALS: BP 133/78; PULSE 75; TEMP 36.7; O2SAT 97
== END | disposition home or self-care (01) ==
LOC: C.ACU 07:56
PROVIDERS: ATTEND Urology
DX: N20.1 Calculus of ureter (principal); N20.0 Calculus of kidney; N40.1 Benign prostatic hyperplasia with lower urinary tract symptoms; N41.9 Inflammatory disease of prostate, unspecified; N52.9 Male erectile dysfunction, unspecified; R97.20 Elevated prostate specific antigen [PSA]; I10 Essential (primary) hypertension; Z88.1 Allergy status to other antibiotic agents; Z79.899 Other long term (current) drug therapy; Z82.49 Family history of ischemic heart disease and other diseases of the circulatory system; Z80.9 Family history of malignant neoplasm, unspecified; Z87.891 Personal history of nicotine dependence; Z88.8 Allergy status to other drugs, medicaments and biological substances

== ENCOUNTER 2017-06-29 05:38 | Emergency (ER) | payer OTHER ==
[~2017-06-29] VITALS: Ht 175.3 cm; Wt 82.5 kg
[~2017-06-29 05:38] MED LIST changes: -ATROPINE SULFATE 0.1 MG/ML 5ML SYR IV PRN; -CIPROFLOXACIN / D5W 400 MG IV SCH; -Cysto-Conray II 17.2% 250ML BOTTLE ONE; -DEXAMETHASONE SOD INJ 4 MG/ML VIAL ONE; -EpHEDrine SULFATE INJ 50 MG/ML AMP IV PRN; -EpHEDrine SULFATE INJ 50 MG/ML AMP ONE; -FENTANYL CITRATE INJ 50 MCG/1 ML 2 ML VIAL IV PRN; -FENTANYL CITRATE INJ 50 MCG/1 ML 2 ML VIAL ONE; -HYDROmorphone INJ 2 MG/ML SYR/VIAL IV PRN; -LABETALOL HCL IV 5 MG/ML 20ML IV PRN; -LACTATED RINGER'S 1000ML 1,000 ML IV SCH; -LIDOCAINE HCL 2% 2 ML VIAL (20MG/ML) ONE; -MIDAZOLAM HCL 1 MG/ML 2ML VIAL ONE; -ONDANSETRON INJ 2 MG/ML 2 ML VIAL IV PRN; -ONDANSETRON INJ 2 MG/ML 2 ML VIAL ONE; -OXYCODONE/ACETAMINOPHEN 5-325 TAB PO PRN; -PHEN-775 PO; -PHENAZOPYRIDINE HCL 200 MG TAB PO PRN; -PHENYLEPHRINE 100MCG/ML 5ML SYR IV PRN; -PROMETHAZINE HCL INJ 12.5 MG in SODIUM CHLORIDE 0.9% 50ML 50 ML IV PRN; -PROPOFOL IV EMULSION 10 MG/ML 20 ML VIAL ONE; -SODIUM CHLORIDE 0.9% INJ 10 ML VIAL ONE
[2017-06-29 05:46] VITALS: TEMP 36.6; Ht 175.3 cm; Wt 82.5 kg
[2017-06-29 06:16] VITALS: O2SAT 95
[2017-06-29] MEDS ORDERED: DiphenhydrAMINE HCL 50 MG/ML VIAL IV STA (06:40)
[2017-06-29] MEDS ORDERED: MoRPHine SULFATE 2 MG/ML CARP IV STA (06:40)
[2017-06-29] MEDS ORDERED: SODIUM CHLORIDE 0.9% 500ML 500 ML IV STA (06:40)
[2017-06-29] MEDS ORDERED: METHYLPREDNISOLONE 125 MG VIAL IV STA (06:40)
[2017-06-29] MEDS ORDERED: ONDANSETRON INJ 2 MG/ML 2 ML VIAL IV STA (06:40)
[2017-06-29] MEDS ORDERED: SODIUM CHLORIDE 0.9% 1000ML 1,000 ML IV STA (06:40)
[2017-06-29] MEDS ORDERED: MoRPHine SULFATE 4 MG/ML 1 ML CARP\\VIAL ONE (06:49)
[2017-06-29 06:55] LABS: ALBUMIN 3.8 gm/dl (3.4-5.0); CREATININE 0.94 mg/dl (0.60-1.40); TOTAL PROTEIN 7.7 gm/dl (6.4-8.2)
--- NOTE | 2017-06-29 06:58 | EMERGENCY ROOM VISIT NOTE ---
History Report prepared by Mignon: Juan Jones Under the Supervision of: Dr. Tere Wells M.D. First contact with patient: 06:36 Chief Complaint: ABDOMINAL PAIN Stated Complaint: SEVERE HEARTBURN AND STOMACH PAIN Nursing Triage Summary: c/o abd pain this am. had a bm last night and a small one this am. hx of bowel obstructions. abd distended. History of Present Illness The patient is a 67 year old male who presents to the Emergency Room with complaints of waxing and waning left upper quadrant abdominal pain that began yesterday afternoon. The patient states that his current pain is located under his left breast. The patient described his symptoms yesterday as "severe heartburn." He does have a history of heartburn, but notes that his symptoms are usually resolved with Prilosec. He has not vomited, and he is not short of breath. The patient notes that he did start taking Augmentin yesterday for a persistent sinus infection. The patient notes that he has had two small bowel obstructions in the past, and the symptoms felt somewhat similar to those episodes. He notes that his abdomen is distended. Source of History: patient Onset: Yesterday afternoon Position: chest (left), abdomen (LUQ) Quality: other (Midnight like heart burn) Timing: waxes/wanes Associated Symptoms: + abdominal pain (distended), No SOB, No vomiting Review of Systems See HPI for pertinent positives & negatives. A total of 10 systems reviewed and were otherwise negative. Past Medical & Surgical Medical Problems: (1) Abdominal pain (2) Benign Prostatic Hyperplasia With Lower Urinary Tract Symp (3) Chest pain (4) Diverticulitis (5) Elevated liver enzymes (6) Febrile illness (7) Hyperbilirubinemia (8) Hypertension (9) Ileus (10) Kidney disease (11) Kidney stones (12) Lower abdominal pain (13) Night sweats (14) Night sweats (15) Pneumonia (16) skin problems (17) Small bowel obstruction (18) Small bowel obstruction (19) Urinary retention Surgical Problems: (1) S/P cholecystectomy Family History Cancer Hypertension Kidney disease Kidney stones Lung disease Social History Smoking Status: Former Smoker (Quit 10 years ago) Alcohol Use: occasionally Marital Status: Housing Status: lives with significant other Occupation Status: employed Current/Historical Medications Scheduled Doxazosin Mesylate (Doxazosin Mesylate), 8 MG PO HS Pantoprazole (Protonix), 40 MG PO DAILY Tamsulosin HCl (Tamsulosin HCl), 1 CAP PO HS Scheduled PRN Fluticasone Propionate (Nasal) (Flonase Allergy Relief), for allergies Allergies Coded Allergies: Iodinated Diagnostic Agents (Verified Allergy, Unknown, HIVES, 06/29/17) Metoclopramide (Verified Adverse Reaction, Severe, GI SYMPTOMS, HALLUCINATIONS, 06/29/17) DEVEELOPED HALLUCIANTIONS Amoxicillin (Verified Adverse Reaction, Intermediate, GI SYMPTOMS,PROB CHOLESTASIS, 06/29/17) probable cholestasis Clavulanic Acid (Verified Adverse Reaction, Intermediate, GI SYMPTOMS, PROB CHOLESTASIS, 06/29/17) probable cholestasis Physical Exam Vital Signs Date Time Temp Pulse Resp B/P (MAP) Pulse Ox O2 Delivery O2 Flow Rate FiO2 06/29/17 10:05 63 12 113/71 93 06/29/17 09:30 63 12 119/76 92 Room Air 06/29/17 08:47 64 16 112/72 94 Room Air 06/29/17 07:44 62 16 127/78 95 Room Air 06/29/17 07:09 64 18 125/79 95 Room Air 06/29/17 06:20 67 06/29/17 06:16 95 Room Air 06/29/17 06:16 69 18 106/63 95 Room Air 06/29/17 05:46 36.6 75 18 128/80 94 Room Air Physical Exam Vital signs reviewed. General: Well-appearing male, in no significant distress. HEENT: No scleral icterus, PERRLA, neck supple. Atraumatic. Cardiovascular: Regular rate and rhythm, no extra sounds. Pulmonary: Clear to auscultation bilaterally, normal work of breathing. Abdomen: Soft, tender to the epigastric region, nondistended, positive bowel sounds. Musculoskeletal: Atraumatic, no peripheral edema. Neurologic: Patient awake alert and oriented x 3 Skin: Warm, dry, no rash Medical Decision & Procedures ER Provider Diagnostic Interpretation: Radiology results as stated below per my review and radiologist interpretation: CHEST ONE VIEW PORTABLE CLINICAL HISTORY: Chest pain. COMPARISON STUDY: Chest radiograph May 30, 2017. FINDINGS: Incidental note is made of a healed mid shaft fracture of the left clavicle. There is no pneumothorax or pleural effusion. Cardiomediastinal silhouette is unremarkable. Linear bibasilar opacities favor atelectasis. There is no evidence for pulmonary edema. Lucency projecting over the right upper quadrant likely reflects bowel gas. IMPRESSION: 1. No acute cardiopulmonary findings. 2. Linear bibasilar opacities suggestive of atelectasis. Electronically signed by: Mark Martin M.D. 06/29/2017 7:05 AM Dictated Date/Time: 06/29/2017 7:[address] OF THE ABDOMEN AND PELVIS WITH CONTRAST CLINICAL HISTORY: Epigastric pain. History of small bowel obstruction. COMPARISON STUDY: CT of the abdomen and pelvis May 30, 2017 and KUB June 09, 2017. TECHNIQUE: Following IV administration of 94 mL of Optiray-320, axial images of the abdomen and pelvis were obtained from the lung bases to the proximal femurs. Images were reviewed in the axial, sagittal, and coronal planes. IV contrast was administered without complication. A dose lowering technique was utilized adhering to the principles of ALARA. CT DOSE: 428.86 mGy.cm FINDINGS: Calcified subcarinal lymph node is noted. Linear opacities within the lower lungs reflect atelectasis. Pneumobilia is again noted. There is no biliary ductal dilatation. There is no peripancreatic infiltration. The spleen, adrenal glands and right kidney are unremarkable. There is an 8 mm cyst within lower pole of the left kidney. There is no hydronephrosis. The distal left ureteral calculus shown on CT of May 30, 2017 is no longer visualized. Extensive sigmoid diverticulosis is noted without evidence for acute diverticulitis. Prostate is markedly enlarged. There is no evidence for a bowel obstruction. There is no pneumatosis, free air or portal venous gas. No lymphadenopathy is present. There are no suspicious osseous lesions. The appendix is not visualized but there is no right lower quadrant inflammation. IMPRESSION: 1. No acute process within the abdomen or pelvis. 2. Colonic diverticulosis without evidence for acute diverticulitis. 3. Marked enlargement prostate. Electronically signed by: Mark Martin M.D. 06/29/2017 7:41 AM Dictated Date/Time: 06/29/2017 7:24 AM Laboratory Results 06/29/17 06:05 Red Blood Count 5.28, Mean Corpuscular Volume 90.5, Mean Corpuscular Hemoglobin 30.9, Mean Corpuscular Hemoglobin Concent 34.1, Mean Platelet Volume 10.0, Neutrophils (%) (Auto) 60.1, Lymphocytes (%) (Auto) 24.2, Monocytes (%) (Auto) 11.1, Eosinophils (%) (Auto) 4.0, Basophils (%) (Auto) 0.4, Neutrophils # (Auto ) 3.43, Lymphocytes # (Auto) 1.38, Monocytes # (Auto) 0.63, Eosinophils # (Auto ) 0.23, Basophils # (Auto) 0.02 06/29/17 06:05 Test 06/29/17 06:00 06/29/17 06:05 Urine Color YELLOW Urine Appearance CLEAR (CLEAR) Urine pH 5.0 (4.5-7.5) Urine Specific [place] 1.024 (1.000-1.030) Urine Protein NEG (NEG) Urine Glucose (UA) NEG (NEG) Urine Ketones NEG (NEG) Urine Occult Blood NEG (NEG) Urine Nitrite NEG (NEG) Urine Bilirubin NEG (NEG) Urine Urobilinogen NEG (NEG) Urine Leukocyte Esterase NEG (NEG) White Blood Count 5.70 K/uL (4.8-10.8) Red Blood Count 5.28 M/uL (4.7-6.1) Hemoglobin 16.3 g/dL (14.0-18.0) Hematocrit 47.8 % (42-52) Mean Corpuscular Volume 90.5 fL (80-100) Mean Corpuscular Hemoglobin 30.9 pg (25-34) Mean Corpuscular Hemoglobin Concent 34.1 g/dl (32-36) Platelet Count 152 K/uL (130-400) Mean Platelet Volume 10.0 fL (7.4-10.4) Neutrophils (%) (Auto) 60.1 % Lymphocytes (%) (Auto) 24.2 % Monocytes (%) (Auto) 11.1 % Eosinophils (%) (Auto) 4.0 % Basophils (%) (Auto) 0.4 % Neutrophils # (Auto) 3.43 K/uL (1.4-6.5) Lymphocytes # (Auto) 1.38 K/uL (1.2-3.4) Monocytes # (Auto) 0.63 K/uL (0.11-0.59) Eosinophils # (Auto) 0.23 K/uL (0-0.5) Basophils # (Auto) 0.02 K/uL (0-0.2) RDW Standard Deviation 42.6 fL (36.4-46.3) RDW Coefficient of Variation 12.8 % (11.5-14.5) Immature Granulocyte % (Auto) 0.2 % Immature Granulocyte # (Auto) 0.01 K/uL (0.00-0.02) Anion Gap 6.0 mmol/L (3-11) Est Creatinine Clear Calc Drug Dose 76.3 ml/min Estimated GFR () 96.8 Estimated GFR (Non- 83.6 BUN/Creatinine Ratio 16.3 (10-20) Calcium Level 9.0 mg/dl (8.5-10.1) Total Bilirubin 0.8 mg/dl (0.2-1) Aspartate Amino Transf (AST/SGOT) 31 U/L (15-37) Alanine Aminotransferase (ALT/SGPT) 34 U/L (12-78) Alkaline Phosphatase 82 U/L (45-117) Troponin I < 0.015 ng/ml (0-0.045) Total Protein 7.7 gm/dl (6.4-8.2) Albumin 3.8 gm/dl (3.4-5.0) Globulin 3.9 gm/dl (2.5-4.0) Albumin/Globulin Ratio 1.0 (0.9-2) Lipase 143 U/L (73-393) Laboratory results per my review. Medications Administered Medications (Trade) Dose Ordered Sig/Luis Alberto Route Start Time Stop Time Status Last Admin Dose Admin Ondansetron HCl (Zofran Inj) 4 mg NOW STAT IV 06/29/17 06:40 06/29/17 06:45 DC 06/29/17 06:54 4 MG Sodium Chloride 1,000 ml @ 125 mls/hr Q8H STAT IV 06/29/17 06:40 06/29/17 10:14 DC 06/29/17 06:53 125 MLS/HR Sodium Chloride 500 ml @ 999 mls/hr Q31M STAT IV 06/29/17 06:40 06/29/17 07:10 DC 06/29/17 06:40 999 MLS/HR Methylprednisolone Sodium Succinate (Solu-Medrol IV) 125 mg NOW STAT IV 06/29/17 06:40 06/29/17 06:45 DC 06/29/17 06:54 125 MG Diphenhydramine HCl (Benadryl Inj) 50 mg NOW STAT IV 06/29/17 06:40 06/29/17 06:45 DC 06/29/17 06:53 50 MG Morphine Sulfate (MoRPHine SULFATE INJ) 4 mg STK-MED ONCE .ROUTE 06/29/17 06:49 06/29/17 06:50 DC 06/29/17 06:53 2 MG Morphine Sulfate (MoRPHine SULFATE INJ) 4 mg NOW STAT IV 06/29/17 07:44 06/29/17 07:45 DC 06/29/17 08:03 4 MG Lidocaine HCl (Viscous Lidocaine 2% Soln) 10 ml NOW STAT PO 06/29/17 07:44 06/29/17 07:46 DC 06/29/17 08:03 10 ML Al Hydroxide/Mg Hydroxide (Maalox Susp) 30 ml NOW STAT PO 06/29/17 07:44 06/29/17 07:46 DC 06/29/17 08:03 30 ML Pantoprazole Sodium (Protonix Tab) 40 mg NOW STAT PO 06/29/17 08:42 06/29/17 08:43 DC 06/29/17 08:59 40 MG ECG Per My Interpretation Indication: abdominal pain Rate (beats per minute): 69 Rhythm: normal sinus Findings: other (No PVCs, no [place]/STD) ED Course 0640: Ordered Morphine Sulfate 2 mg IV, Benadryl 50 mg IV, Solu-Medrol 125 mg IV , Sodium Chloride 500 mL @ 999 mL/hr IV, Sodium Chloride 1000 ml @ 125 mls/hr IV , Zofran 4 mg IV. 0645: Past medical records reviewed. The patient was evaluated in room A4B. A complete history and physical examination was performed. 1003: Upon reevaluation, the patient appeared to have improvement of his symptoms. I discussed findings with him. He verbalized agreement of the treatment plan. The patient was discharged home. Medical Decision Differential diagnosis: Etiologies such as appendicitis, diverticulitis, PUD, biliary pathology, UTI, pancreatitis, obstruction, mesenteric ischemia, aortic pathology, infections, inflammatory bowel disease, renal colic, as well as others were entertained. This patient was evaluated and appeared to be in no significant patient was placed on the package designer and found to be in normal sinus rhythm. Patient was hydrated with normal saline solution, IV Zofran and morphine for his discomfort. EKG reveals no evidence of acute ischemia. Laboratory work reveals negative troponin. Patient is a normal white blood cell count and normal LFTs. Chest x-ray is clear. CT scan of the abdomen and pelvis was performed due to the epigastric abdominal tenderness. Patient did require IV Solu-Medrol and Benadryl prior to the study secondary to allergic response to IV contrast. The study is negative for acute pathology. I suspect the patient' s has a relative intolerance to Augmentin. Patient was given a GI cocktail and p.o. Protonix. He was advised to stop his Augmentin. He will follow-up with his PCP regarding the sinus symptoms, attempt to use Flonase nasal spray in the meantime. I do not feel that starting an antibiotic today is in the patient's best interest. He was given a prescription for Protonix and was advised to use Zantac as needed. He will return to the ED for worsening of symptoms or any medical concerns. Medication Reconcilliation Current Medication List: was personally reviewed by me Blood Pressure Screening Patient's blood pressure: Normal blood pressure Impression Primary Impression: Epigastric abdominal pain Scribe Attestation The scribe's documentation has been prepared under my direction and personally reviewed by me in its entirety. I confirm that the note above accurately reflects all work, treatment, procedures, and medical decision making performed by me. Departure Information Dispostion Home / Self-Care Prescriptions Pantoprazole (Protonix) 40 Mg Tab 40 MG PO DAILY, #30 TAB Prov: Tere Wells M.D. 06/29/17 Referrals Chance Argaon M.D. (PCP) Forms Call Back Authorization, HOME CARE DOCUMENTATION FORM, IMPORTANT VISIT INFORMATION Patient Instructions My [facility] Additional Instructions Diagnosis: Epigastric abdominal pain Protonix 40 mg daily. Zantac 150 mg twice daily as needed for gastritis. Stop the Augmentin. Follow-up with your physician for reevaluation this week. Return to the emergency department for worsening symptoms or any medical concerns.
[2017-06-29] MEDS ORDERED: OPTIRAY 320 IV PRN (07:00)
--- NOTE | 2017-06-29 07:06 | DIAGNOSTIC IMAGING REPORT ---
CHEST ONE VIEW PORTABLE CLINICAL HISTORY: Chest pain. COMPARISON STUDY: Chest radiograph May 30, 2017. FINDINGS: Incidental note is made of a healed mid shaft fracture of the left clavicle. There is no pneumothorax or pleural effusion. Cardiomediastinal silhouette is unremarkable. Linear bibasilar opacities favor atelectasis. There is no evidence for pulmonary edema. Lucency projecting over the right upper quadrant likely reflects bowel gas. IMPRESSION: 1. No acute cardiopulmonary findings. 2. Linear bibasilar opacities suggestive of atelectasis. Electronically signed by: Mark Martin M.D. 06/29/2017 7:05 AM Dictated Date/Time: 06/29/2017 7:03 AM
[2017-06-29 07:36] LABS: HEMATOCRIT 47.8 % (42-52); HEMOGLOBIN 16.3 g/dL (14.0-18.0); MEAN CELL VOLUME 90.5 fL (80-100); MEAN CORPUSCULAR HEMOGLOBIN 30.9 pg (25-34); MEAN CORPUSCULAR HGB CONC 34.1 g/dl (32-36); PLATELET COUNT 152 K/uL (130-400); RED CELL DISTRIBUTION WIDTH CV 12.8 % (11.5-14.5); RED CELL DISTRIBUTION WIDTH SD 42.6 fL (36.4-46.3)
--- NOTE | 2017-06-29 07:42 | DIAGNOSTIC IMAGING REPORT ---
CT OF THE ABDOMEN AND PELVIS WITH CONTRAST CLINICAL HISTORY: Epigastric pain. History of small bowel obstruction. COMPARISON STUDY: CT of the abdomen and pelvis May 30, 2017 and KUB June 09, 2017. TECHNIQUE: Following IV administration of 94 mL of Optiray-320, axial images of the abdomen and pelvis were obtained from the lung bases to the proximal femurs. Images were reviewed in the axial, sagittal, and coronal planes. IV contrast was administered without complication. A dose lowering technique was utilized adhering to the principles of ALARA. CT DOSE: 428.86 mGy.cm FINDINGS: Calcified subcarinal lymph node is noted. Linear opacities within the lower lungs reflect atelectasis. Pneumobilia is again noted. There is no biliary ductal dilatation. There is no peripancreatic infiltration. The spleen, adrenal glands and right kidney are unremarkable. There is an 8 mm cyst within lower pole of the left kidney. There is no hydronephrosis. The distal left ureteral calculus shown on CT of May 30, 2017 is no longer visualized. Extensive sigmoid diverticulosis is noted without evidence for acute diverticulitis. Prostate is markedly enlarged. There is no evidence for a bowel obstruction. There is no pneumatosis, free air or portal venous gas. No lymphadenopathy is present. There are no suspicious osseous lesions. The appendix is not visualized but there is no right lower quadrant inflammation. IMPRESSION: 1. No acute process within the abdomen or pelvis. 2. Colonic diverticulosis without evidence for acute diverticulitis. 3. Marked enlargement prostate. Electronically signed by: Mark Martin M.D. 06/29/2017 7:41 AM Dictated Date/Time: 06/29/2017 7:24 AM
[2017-06-29 07:43] LABS: BASO % 0.4 %; BASO ABS # 0.02 K/uL (0-0.2); EOS ABS # 0.23 K/uL (0-0.5); IG# 0.01 K/uL (0.00-0.02); LYMPH % 24.2 %; LYMPH ABS # 1.38 K/uL (1.2-3.4); MONO % 11.1 %; MONO ABS # 0.63 K/uL (0.11-0.59); NEUT % 60.1 %; NEUT ABS # 3.43 K/uL (1.4-6.5)
[2017-06-29] MEDS ORDERED: ALUMINUM/MAGNESIUM SUSP 30 ML UDC PO STA (07:44)
[2017-06-29] MEDS ORDERED: LIDOCAINE HCL 2% VISC SOLN 20 ML UDC PO STA (07:44)
[2017-06-29] MEDS ORDERED: MoRPHine SULFATE 4 MG/ML 1 ML CARP\\VIAL IV STA (07:44)
[2017-06-29] MEDS ORDERED: PANTOprazole SOD 40 MG TAB PO STA (08:42)
[2017-06-29] MEDS ORDERED: PANT40TA PO (09:46)
[2017-06-29 10:05] VITALS: BP 113/71; PULSE 63; O2SAT 93
== END 2017-06-29 10:06 | disposition home or self-care (01) ==
LOC: C.EDB 05:39 → C.EDA 10:06
DX: R10.13 Epigastric pain (principal); N40.1 Benign prostatic hyperplasia with lower urinary tract symptoms; I10 Essential (primary) hypertension; Z87.01 Personal history of pneumonia (recurrent); Z87.442 Personal history of urinary calculi; Z90.49 Acquired absence of other specified parts of digestive tract; Z80.9 Family history of malignant neoplasm, unspecified; Z82.49 Family history of ischemic heart disease and other diseases of the circulatory system; Z84.1 Family history of disorders of kidney and ureter; Z87.891 Personal history of nicotine dependence; Z79.899 Other long term (current) drug therapy; Z88.0 Allergy status to penicillin; Z91.041 Radiographic dye allergy status

== ENCOUNTER → 2017-09-02 | Outpatient (CLI) | payer OTHER ==
[~2017-09-02] MED LIST changes: -CIPR-255 PO; -OXYC-57 PO; +PANT40TA PO
[2017-09-02 12:48] LABS: BLOOD UREA NITROGEN 14 mg/dl (7-18)
== END | disposition home or self-care (01) ==
LOC: C.LAB 11:14
PROVIDERS: ATTEND Urology
DX: N20.0 Calculus of kidney (principal)

== ENCOUNTER → 2017-09-14 | Outpatient (CLI) | payer OTHER ==
[~2017-09-14] MED LIST changes: +OPTIRAY 300 IV PRN
--- NOTE | 2017-09-14 14:34 | DIAGNOSTIC IMAGING REPORT ---
IVP W/OR W/O TOMOGRAMS CLINICAL HISTORY: 67 years-old Male presenting with N20.0 Calculus of kidney N20.1 Left ureteral stone iodine allergy-. TECHNIQUE: Initially, an abdominal block saw operator radiograph was obtained. Subsequently, an intravenous pyelogram was performed following administration of 100 mL of Optiray 300 with tomographic images acquired in the corticomedullary and excretory phases of enhancement. Overhead views of the renal collecting system and bladder were obtained in multiple obliquities both pre and post voiding. COMPARISON: CT from 06/29/2017. FINDINGS: Initial radiograph demonstrates mild stool burden throughout the colon. Nonobstructive bowel gas pattern. No gross pneumoperitoneum allowing for supine technique. Normal excretion of contrast from the bilateral kidneys. The renal collecting systems are nondilated. Ureters also not pathologically dilated. No gross filling defect within the urinary collecting systems. The bladder demonstrates a filling defect at the bladder neck compatible with prostatomegaly with median lobe hypertrophy. Post void imaging demonstrates incomplete voiding. IMPRESSION: 1. Prostatomegaly with abnormal post void residual volume. 2. No hydronephrosis or hydroureter. No filling defect to suggest urothelial lesion. 3. No radiographic evidence of renal or ureteral calculi. Electronically signed by: Richar Nina M.D. 09/14/2017 2:29 PM Dictated Date/Time: 09/14/2017 2:19 PM
== END | disposition home or self-care (01) ==
LOC: C.RAD 12:25
PROVIDERS: ATTEND Urology
DX: N20.0 Calculus of kidney (principal); N20.1 Calculus of ureter; N40.0 Benign prostatic hyperplasia without lower urinary tract symptoms; Z91.041 Radiographic dye allergy status

== ENCOUNTER 2017-09-29 03:05 | Emergency (ER) | payer OTHER ==
[~2017-09-29] VITALS: Ht 175.3 cm; Wt 82.2 kg
[~2017-09-29 03:05] MED LIST changes: -OPTIRAY 300 IV PRN
[2017-09-29 03:08] VITALS: TEMP 36.6; Ht 175.3 cm; Wt 82.2 kg
--- NOTE | 2017-09-29 03:30 | EMERGENCY ROOM VISIT NOTE ---
History Report prepared by Mignon: Ruy Presley Under the Supervision of: Dr. Phu Sauceda M.D. First contact with patient: 03:21 Chief Complaint: SHORTNESS OF BREATH Stated Complaint: SOB,FEEL FUNNY,NOT RIGHT History of Present Illness The patient is a 67 year old male who presents to the Emergency Room with complaints of constant SOB beginning this morning at 0200. The patient states that he woke up this morning at 0200 and did not feel right. He notes that he could not catch his breath. He reports that his symptoms felt like indigestion or "when a fever comes on." He denies any abdominal pain. The patient states that he did not take anything for his symptoms. Per , the patient felt clammy. The patient notes that he has a history of a heart murmur and does not smoke cigarettes. He reports that he has a family history of hypertension but does not have a family history of heart issues. Source of History: patient Onset: 0200 this morning Position: chest Quality: other (SOB) Timing: constant Associated Symptoms: No abdominal pain Note: Per , the patient felt clammy. Review of Systems See HPI for pertinent positives & negatives. A total of 10 systems reviewed and were otherwise negative. Past Medical & Surgical Medical Problems: (1) Abdominal pain (2) Benign Prostatic Hyperplasia With Lower Urinary Tract Symp (3) Chest pain (4) Diverticulitis (5) Elevated liver enzymes (6) Febrile illness (7) Heart murmur (8) Hyperbilirubinemia (9) Hypertension (10) Ileus (11) Kidney disease (12) Kidney stones (13) Lower abdominal pain (14) Night sweats (15) Night sweats (16) Pneumonia (17) skin problems (18) Small bowel obstruction (19) Small bowel obstruction (20) Urinary retention Surgical Problems: (1) S/P cholecystectomy Family History Cancer Gallbladder disease Hypertension Kidney disease Kidney stones Lung disease Social History Smoking Status: Never Smoker Alcohol Use: occasionally Marital Status: Housing Status: lives with family Occupation Status: employed Current/Historical Medications Scheduled Doxazosin Mesylate (Doxazosin Mesylate), 8 MG PO HS Famotidine (Pepcid), 40 MG PO HS Fluticasone Propionate (Nasal) (Flonase Allergy Relief), 1 SPRAY ABRAHAM DAILY Allergies Coded Allergies: Iodinated Diagnostic Agents (Verified Allergy, Unknown, HIVES, 5/23/18) Metoclopramide (Verified Adverse Reaction, Severe, GI SYMPTOMS, HALLUCINATIONS, 06/29/17) DEVEELOPED HALLUCIANTIONS Amoxicillin (Verified Adverse Reaction, Intermediate, GI SYMPTOMS,PROB CHOLESTASIS, 06/29/17) probable cholestasis Clavulanic Acid (Verified Adverse Reaction, Intermediate, GI SYMPTOMS, PROB CHOLESTASIS, 06/29/17) probable cholestasis Physical Exam Vital Signs Date Time Temp Pulse Resp B/P (MAP) Pulse Ox O2 Delivery O2 Flow Rate FiO2 09/29/17 05:50 63 16 139/90 94 Room Air 09/29/17 04:41 65 20 139/87 94 Room Air 09/29/17 04:11 76 16 117/87 94 09/29/17 03:34 96 Room Air 09/29/17 03:20 96 Room Air 09/29/17 03:20 79 09/29/17 03:15 96 09/29/17 03:08 36.6 72 18 140/83 97 Room Air Physical Exam GENERAL: Awake, alert, well-appearing, in no acute distress HENT: Normocephalic, atraumatic. Oropharynx unremarkable. EYES: Normal conjunctiva. Sclera non-icteric. NECK: Supple. No nuchal rigidity. FROM. No JVD. RESPIRATORY: Clear to auscultation. CARDIAC: Regular rate, normal rhythm. Extremities warm and well perfused. Pulses equal. ABDOMEN: Soft, non-distended. No tenderness to palpation. No rebound or guarding. No masses. RECTAL: Deferred. MUSCULOSKELETAL: Chest examination reveals no tenderness. The back is symmetrical on inspection without obvious abnormality. There is no CVA tenderness to palpation. No joint edema. LOWER EXTREMITIES: Calves are equal size bilaterally and non-tender. No edema. No discoloration. NEURO: Normal sensorium. No sensory or motor deficits noted. SKIN: No rash or jaundice noted. Medical Decision & Procedures ER Provider Diagnostic Interpretation: Radiology results as stated below per my review and interpretation: 1 VIEW CHEST X-RAY: No pneumonia, congestion, or pneumothorax. Radiology results as stated below per my review and radiologist interpretation: CTA CHEST: No evidence for pulmonary embolism. Scattered ground-glass opacities noted with diminished lung volumes. This is presumed atelectasis with expiratory technique is the time of imaging. Subtle pulmonary vascular congestion in difficult to entirely exclude. Minimal, predominantly curvilinear presumed atelectatic changes noted involving the inferior lingular segments and lung bases. No segmental consolidation, pleural effusion or pneumothorax. The thoracic aorta is unremarkable. The cardiac chambers are upper limits of normal in caliber. No pericardial effusion. Nonspecific paratracheal and prevascular lymph nodes. Radiologist: Omer Lynne MD. Laboratory Results 09/29/17 03:20 Red Blood Count 4.87, Mean Corpuscular Volume 91.0, Mean Corpuscular Hemoglobin 31.8, Mean Corpuscular Hemoglobin Concent 35.0, Mean Platelet Volume 9.1 09/29/17 03:20 Test 09/29/17 03:20 09/29/17 03:38 09/29/17 04:17 09/29/17 04:50 White Blood Count 6.17 K/uL (4.8-10.8) Red Blood Count 4.87 M/uL (4.7-6.1) Hemoglobin 15.5 g/dL (14.0-18.0) Hematocrit 44.3 % (42-52) Mean Corpuscular Volume 91.0 fL (80-100) Mean Corpuscular Hemoglobin 31.8 pg (25-34) Mean Corpuscular Hemoglobin Concent 35.0 g/dl (32-36) Platelet Count 174 K/uL (130-400) Mean Platelet Volume 9.1 fL (7.4-10.4) RDW Standard Deviation 43.3 fL (36.4-46.3) RDW Coefficient of Variation 13.1 % (11.5-14.5) Anion Gap 6.0 mmol/L (3-11) Est Creatinine Clear Calc Drug Dose 89.6 ml/min Estimated GFR () 107.1 Estimated GFR (Non- 92.4 BUN/Creatinine Ratio 23.1 (10-20) Calcium Level 8.3 mg/dl (8.5-10.1) Total Bilirubin 0.4 mg/dl (0.2-1) Aspartate Amino Transf (AST/SGOT) 20 U/L (15-37) Alanine Aminotransferase (ALT/SGPT) 26 U/L (12-78) Alkaline Phosphatase 70 U/L (45-117) Total Creatine Kinase 139 U/L (39-308) Creatine Kinase MB 1.5 ng/ml (0.5-3.6) Creatine Kinase MB Ratio 1.1 (0-3.0) Total Protein 6.4 gm/dl (6.4-8.2) Albumin 3.6 gm/dl (3.4-5.0) Globulin 2.8 gm/dl (2.5-4.0) Albumin/Globulin Ratio 1.3 (0.9-2) Bedside D-Dimer > 450 ng/mlFEU (0-450) Urine Color YELLOW Urine Appearance CLEAR (CLEAR) Urine pH 6.0 (4.5-7.5) Urine Specific [place] 1.014 (1.000-1.030) Urine Protein NEG (NEG) Urine Glucose (UA) NEG (NEG) Urine Ketones NEG (NEG) Urine Occult Blood NEG (NEG) Urine Nitrite NEG (NEG) Urine Bilirubin NEG (NEG) Urine Urobilinogen NEG (NEG) Urine Leukocyte Esterase NEG (NEG) Troponin I < 0.015 ng/ml (0-0.045) Labs reviewed by ED physician. Medications Administered Medications (Trade) Dose Ordered Sig/Luis Alberto Route Start Time Stop Time Status Last Admin Dose Admin Miscellaneous Medication (Gi Cocktail) 24 ml NOW STAT PO 09/29/17 03:32 09/29/17 03:34 DC 09/29/17 03:40 24 ML Famotidine (Pepcid Tab) 20 mg NOW STAT PO 09/29/17 03:32 09/29/17 03:34 DC 09/29/17 03:39 20 MG Sucralfate (Carafate Tab) 1 gm NOW STAT PO 09/29/17 03:32 09/29/17 03:34 DC 09/29/17 03:39 1 GM Methylprednisolone Sodium Succinate (Solu-Medrol IV) 125 mg NOW STAT IV 09/29/17 04:02 09/29/17 04:04 DC 09/29/17 04:16 125 MG Diphenhydramine HCl (Benadryl Inj) 50 mg NOW STAT IV 09/29/17 04:02 09/29/17 04:04 DC 09/29/17 04:17 50 MG Sodium Chloride 1,000 ml @ 999 mls/hr Q1H1M STAT IV 09/29/17 04:02 09/29/17 05:02 DC 09/29/17 04:15 999 MLS/HR Ranitidine HCl (zANTac TAB) 150 mg NOW STAT PO 09/29/17 04:02 09/29/17 04:04 DC 09/29/17 04:16 150 MG ECG Per My Interpretation Indication: SOB/dyspnea Rate (beats per minute): 72 Rhythm: normal sinus Findings: other (Normal EKG, no ST elevation/depression) Change: Repeat EKG: Normal sinus, 64, normal EKG, no ST elevation/depression. ED Course 0327: Past medical records reviewed. The patient was evaluated in room A3. A complete history and physical examination was performed. 0554: Upon reexamination the patient is stable. I discussed results and treatment plan with the patient. He verbalizes agreement and understanding. The patient is ready for discharge. Medical Decision Differential diagnosis: Etiologies such as infections, reactive airway disease, pneumonia, pneumothorax , COPD, CHF, cardiac ischemia, pulmonary embolism, musculoskeletal, gastrointestinal, as well as others were entertained. This is a 67-year-old male who presents emergency department after complaining of shortness of breath and reflux after eating a funnel cake at the [employer] this evening. The patient was given a GI cocktail Pepcid and Carafate. Repeat examination revealed much improvement the patient's symptoms. Serial EKGs as well as serial troponins were obtained in the emergency department. As these are essentially normal I do feel the patient can be safely discharged home. There was some concern over some blasts found in the patient's blood work. For this reason I will have the patient follow-up with his primary care physician. I stressed the need for follow-up due to the abnormal cells on the patient's discharge. I recommended taking a clear liquid diet for the next 48 hours along with 5 mL's of Maalox and taking Pepcid before bedtime. Patient and are in agreement with treatment plan. Medication Reconcilliation Current Medication List: was personally reviewed by me Blood Pressure Screening Patient's blood pressure: Elevated blood pressure Blood pressure disposition: Elevated BP felt to be situational Impression Primary Impression: Reflux gastritis Scribe Attestation The scribe's documentation has been prepared under my direction and personally reviewed by me in its entirety. I confirm that the note above accurately reflects all work, treatment, procedures, and medical decision making performed by me. Departure Information Dispostion Home / Self-Care Prescriptions Famotidine (Pepcid) 40 Mg Tab 40 MG PO HS for 30 Days, #30 TAB Prov: Phu Sauceda MD 09/29/17 Referrals Carson Fernandez D.O. (PCP) Forms HOME CARE DOCUMENTATION FORM, IMPORTANT VISIT INFORMATION Patient Instructions [facility] Additional Instructions Need close follow up with PCP for atypical "Blast cells" Clear liquid diet next 48 hours Take 5 ml Maalox before every meal and bedtime Blood count lab result will be reviewed by patholigist in the morning Radiographs and CTs will be reread by a radiologist in the morning. You have been examined and treated today on an emergency basis only. This is not a substitute for, or an effort to provide, complete comprehensive medical care. It is impossible to recognize and treat all injuries or illnesses in a single emergency department visit. It is therefore important that you follow up closely with Dr Fernandez. Call as soon as possible for an appointment. Thank you for your time and consideration. I look forward to speaking with you again soon. Please don't hesitate to call us if you have any questions.
[2017-09-29] MEDS ORDERED: SUCRALFATE 1 GM TAB PO STA (03:32)
[2017-09-29] MEDS ORDERED: GI COCKTAIL PO STA (03:32)
[2017-09-29] MEDS ORDERED: FAMOTIDINE 20 MG TAB PO STA (03:32)
[2017-09-29 03:34] VITALS: O2SAT 96
[2017-09-29] MEDS ORDERED: LIDOCAINE HCL 2% VISC SOLN 20 ML UDC ONE (03:37)
[2017-09-29] MEDS ORDERED: ALUMINUM/MAGNESIUM SUSP 30 ML UDC ONE (03:37)
[2017-09-29] MEDS ORDERED: FLUT0.15 NAE (04:01)
[2017-09-29] MEDS ORDERED: RANITIDINE HCL 150 MG TAB PO STA (04:02)
[2017-09-29] MEDS ORDERED: METHYLPREDNISOLONE 125 MG VIAL IV STA (04:02)
[2017-09-29] MEDS ORDERED: SODIUM CHLORIDE 0.9% 1000ML 1,000 ML IV STA (04:02)
[2017-09-29] MEDS ORDERED: DiphenhydrAMINE HCL 50 MG/ML VIAL IV STA (04:02)
[2017-09-29 04:17] LABS: ALBUMIN 3.6 gm/dl (3.4-5.0); ALT/SGPT 26 U/L (12-78); AST/SGOT 20 U/L (15-37); BLOOD UREA NITROGEN 18 mg/dl (7-18); CALCIUM 8.3 mg/dl (8.5-10.1); CARBON DIOXIDE 27 mmol/L (21-32); GLUCOSE 82 mg/dl (70-99); POTASSIUM 4.3 mmol/L (3.5-5.1); SODIUM 139 mmol/L (136-145)
[2017-09-29 04:23] LABS: ALKALINE PHOSPHATASE 70 U/L (45-117); CKMB 1.5 ng/ml (0.5-3.6); TOTAL PROTEIN 6.4 gm/dl (6.4-8.2)
[2017-09-29] MEDS ORDERED: OPTIRAY 320 IV PRN (04:30)
[2017-09-29 04:57] LABS: HEMATOCRIT 44.3 % (42-52); HEMOGLOBIN 15.5 g/dL (14.0-18.0); MEAN CORPUSCULAR HEMOGLOBIN 31.8 pg (25-34); MEAN PLATELET VOLUME 9.1 fL (7.4-10.4); PLATELET COUNT 174 K/uL (130-400); RED CELL DISTRIBUTION WIDTH CV 13.1 % (11.5-14.5); RED CELL DISTRIBUTION WIDTH SD 43.3 fL (36.4-46.3); WHITE BLOOD COUNT 6.17 K/uL (4.8-10.8)
[2017-09-29] MEDS ORDERED: FAMO40TA6 PO (05:49)
[2017-09-29 05:50] VITALS: BP 139/90; PULSE 63; O2SAT 94
--- NOTE | 2017-09-29 07:17 | DIAGNOSTIC IMAGING REPORT ---
SINGLE VIEW CHEST CLINICAL HISTORY: Dyspnea. FINDINGS: An AP, portable, upright chest radiograph is compared to study dated 06/29/2017. The examination is degraded by portable technique and patient rotation. The heart is top normal for projection. The mediastinal contour is within normal limits. There is bibasilar scarring/atelectasis. No airspace consolidation is identified typical for pneumonia and there is no large pleural effusion. No pneumothorax is seen. The bony thorax is grossly intact. IMPRESSION: No acute cardiopulmonary abnormality. Electronically signed by: Harvey Wooten M.D. 09/29/2017 7:16 AM Dictated Date/Time: 09/29/2017 7:15 AM
--- NOTE | 2017-09-29 08:27 | DIAGNOSTIC IMAGING REPORT ---
CT ANGIOGRAM OF THE CHEST CLINICAL HISTORY: Dyspnea. COMPARISON STUDY: Chest CT dated 11/19/2013. Chest x-ray dated 09/29/2017. TECHNIQUE: Following the IV administration of 83 cc of Optiray 320, CT angiogram of the chest was performed from the upper abdomen to the thoracic inlet utilizing the pulmonary embolus protocol. Images are reviewed in the axial, sagittal, and coronal planes. 3-D MIPS images are created and assessed. The patient was premedicated for a reported history of contrast allergy. IV contrast was administered without complication. A dose lowering technique was utilized adhering to the principles of ALARA. CT DOSE: 370.83 mGy.cm FINDINGS: Thyroid: Imaged portions of the thyroid gland are normal in size and attenuation. A 1.4 cm calcification containing low-attenuation nodule is seen in the right lobe. This was also seen in 2013. Thoracic aorta: The thoracic aorta is normal in caliber and demonstrates bovine variant arch anatomy. No dissection is seen. Pulmonary vasculature: The main pulmonary arteries appear dilated suggesting pulmonary artery hypertension. There are no filling defects identified in main, lobar, or segmental pulmonary branches to suggest pulmonary embolus. Evaluation of the peripheral branches is degraded by motion artifact. Heart: The heart is enlarged and there is trace pericardial fluid. There are coronary artery calcifications. Lungs and pleural spaces: Mild emphysematous change is noted at the apices. Evaluation of the lung parenchyma is degraded by motion artifact. No airspace consolidation or pleural effusion is identified. There is bibasilar scarring/atelectasis. Mild diffuse peribronchial thickening suggests reactive airway disease. The trachea and central airways are clear. There are scattered calcified granulomas. Mediastinum: There is no mediastinal lymphadenopathy. There are calcification containing mediastinal nodes. Rebecca: Clear. Axillae: There is no axillary lymphadenopathy. Upper abdomen: Cholecystectomy clips are noted in the right upper quadrant. There is a small hiatal hernia. Calcification containing upper abdominal lymph nodes are incidentally noted. Skeletal structures: No lytic or blastic bony lesions are seen. There is a healed left clavicular fracture. IMPRESSION: 1. There is no evidence of pulmonary embolus in the main, lobar, or segmental pulmonary arteries. 2. Cardiomegaly and mild emphysema. 3. No airspace consolidation or pleural effusion is identified. 4. Mild diffuse peribronchial thickening suggests reactive air disease. Clinical correlation will be required. 5. Additional findings as above. Electronically signed by: Harvey Wooten M.D. 09/29/2017 8:25 AM Dictated Date/Time: 09/29/2017 7:07 AM
== END 2017-09-29 05:50 | disposition home or self-care (01) ==
LOC: C.EDB 03:07 → C.EDA 05:50
DX: K29.60 Other gastritis without bleeding (principal); R06.02 Shortness of breath; R79.9 Abnormal finding of blood chemistry, unspecified; N40.1 Benign prostatic hyperplasia with lower urinary tract symptoms; Z82.49 Family history of ischemic heart disease and other diseases of the circulatory system; Z91.041 Radiographic dye allergy status; Z88.8 Allergy status to other drugs, medicaments and biological substances; Z88.1 Allergy status to other antibiotic agents